=== PATIENT | male | born 1980 | race African-American/Black ===

== ENCOUNTER 2018-07-19 08:54 | Outpatient (RCR) | payer MEDICAID ==
[~2018-07-19] VITALS: Ht 182.9 cm; Wt 88.0 kg
[2018-07-19] VITALS (9 sets, daily range): BP systolic 113–135; BP diastolic 59–82; PULSE 60–87; TEMP 97.8–98.7
[~2018-07-19 08:54] MED LIST: ATARAX 10MG10 MG/TAB PO; CEPHALEXIN500 M1 PO; LAMICTAL 25MG T25 MG PO; LORTAB 5/500 501 TAB PO; NO HOME MEDICATIONS; PHENERGAN 25 TA25 MG PO; REVLIMID10 MG PO; ZITHROMAX Z PA250 MG PO; ZOVIRAX400 MG PO
== END 2018-07-19 16:13 | disposition home or self-care (01) ==
LOC: EUO 08:54
DX: D46.9 Myelodysplastic syndrome, unspecified (principal)
CPT/HCPCS: J7050; P9016

== ENCOUNTER 2018-08-15 08:37 | Outpatient (RCR) | payer MEDICAID ==
[~2018-08-15] VITALS: Ht 182.9 cm; Wt 90.0 kg
[2018-08-15] VITALS (10 sets, daily range): BP systolic 90–132; BP diastolic 52–73; PULSE 51–82; TEMP 97.5–98.3
== END 2018-08-15 18:00 | disposition home or self-care (01) ==
LOC: EUO 08:37
DX: D64.9 Anemia, unspecified (principal)
CPT/HCPCS: J7050; P9040

== ENCOUNTER 2018-10-02 06:47 | Emergency (ER) | payer MEDICAID ==
[~2018-10-02] VITALS: Ht 185.4 cm; Wt 94.1 kg
[2018-10-02] MEDS ORDERED: LAMICTAL 100MG100 MG PO (07:05)
[2018-10-02] MEDS ORDERED: COREG 3.123.125 MG/T PO (07:05)
[2018-10-02] MEDS ORDERED: ASPIRIN 81M81 MG/TA2 PO (07:06)
[2018-10-02] MEDS ORDERED: ZYRTEC 10MG10 MG PO (07:06)
[2018-10-02] MEDS ORDERED: NITROSTAT0.4 MG/TAB PO (07:07)
[2018-10-02 07:43] LABS: BASO % 0.3 % (0.0-2.0); EOS # 0.1 (0.0-0.7); EOS % 2.6 % (0-4.0); GRAN # 1.7 (1.4-6.5); GRAN % 50.6 % (42.2-75.2); LYMPH # 1.3 (1.2-3.4); LYMPH % 37.5 % (20.0-51.0); MEAN CELL VOLUME 114 fl (80.0-100.0); MEAN CORPUSCULAR HGB CONC 33 g/dl (33.0-37.0); MEAN PLATELET VOLUME 11.6 fl (7.4-10.4); MONO # 0.3 (0.1-0.6); MONO % 8.7 % (1.7-9.3); PLATELET COUNT 136 K/mm3 (130-400); RED BLOOD COUNT 2.45 M/mm3 (4.20-5.60); REDCELL DISTRIBUTION WIDTH-CV 18.9 % (11.5-14.5)
[2018-10-02 07:45] LABS: HEMOGLOBIN 9.3 g/dl (13.5-18.0); MEAN CORPUSCULAR HEMOGLOBIN 38 pg (27.0-31.0)
[2018-10-02 07:56] LABS: ALBUMIN 3.7 gm/dL (3.5-5.0); BILIRUBIN,TOTAL 0.3 mg/dL (0.0-1.0); CALCIUM 8.9 mg/dL (8.4-10.2); CREATININE, serum 0.95 mg/dL (0.66-1.25); POTASSIUM 3.9 mmol/L (3.4-5.0); TOTAL PROTEIN 6.6 gm/dL (6.4-8.2)
[2018-10-02] MEDS ORDERED: AMOXICILLIN 8751 TAB PO (08:44)
[2018-10-02] MEDS ORDERED: ZITHROMAX Z PA250 MG PO (08:44)
[2018-10-02 09:11] VITALS: BP 135/87; PULSE 54; TEMP 98.2
== END 2018-10-02 09:09 | disposition home or self-care (01) ==
LOC: COL.ER 06:47
PROVIDERS: Family Medicine
DX: J20.9 Acute bronchitis, unspecified (principal); I25.10 Atherosclerotic heart disease of native coronary artery without angina pectoris; D46.9 Myelodysplastic syndrome, unspecified; Z79.82 Long term (current) use of aspirin
CPT/HCPCS: J0696; J7030

== ENCOUNTER 2018-10-17 09:02 | Day surgery (SDC) | payer MEDICAID ==
[2018-10-17] VITALS (13 sets, daily range): BP systolic 109–146; BP diastolic 67–92; PULSE 40–73; TEMP 97.9
[~2018-10-17] VITALS: Ht 185.4 cm; Wt 95.7 kg
[~2018-10-17 09:02] MED LIST changes: +AMOXICILLIN 8751 TAB PO; +ASPIRIN 81M81 MG/TA2 PO; +COREG 3.123.125 MG/T PO; +LAMICTAL 100MG100 MG PO; +NITROSTAT0.4 MG/TAB PO; +ZYRTEC 10MG10 MG PO
[2018-10-17 09:57] LABS: HEMOGLOBIN 11.6 g/dl (13.5-18.0); MEAN CELL VOLUME 112 fl (80.0-100.0); MEAN CORPUSCULAR HEMOGLOBIN 37 pg (27.0-31.0); MEAN CORPUSCULAR HGB CONC 33 g/dl (33.0-37.0); MEAN PLATELET VOLUME 9.9 fl (7.4-10.4); PLATELET COUNT 156 K/mm3 (130-400); RED BLOOD COUNT 3.15 M/mm3 (4.20-5.60); REDCELL DISTRIBUTION WIDTH-CV 16.8 % (11.5-14.5)
[2018-10-17 09:59] LABS: HEMATOCRIT 35.2 % (42.0-52.0)
[2018-10-17 10:03] LABS: INR 1.1 (0.8-3.0); PROTHROMBIN TIME 12.3 SECONDS (9.7-12.8)
[2018-10-17 10:07] LABS: CALCIUM 9.2 mg/dL (8.4-10.2); CREATININE, serum 1.18 mg/dL (0.66-1.25); POTASSIUM 4.2 mmol/L (3.4-5.0)
[2018-10-17] MEDS ORDERED: COREG 6.256.25 MG/TA PO (11:26)
[2018-10-17] MEDS ORDERED: VASOTEC 5MG5 MG/TAB PO (11:26)
[2018-10-17] MEDS ORDERED: COREG 3.123.125 MG/T PO (11:57)
== END 2018-10-17 17:24 | disposition home or self-care (01) ==
LOC: COL.CAR 09:02
PROVIDERS: Internal Medicine Cardiovascular Disease
DX: I42.8 Other cardiomyopathies (principal); I07.1 Rheumatic tricuspid insufficiency; D46.C Myelodysplastic syndrome with isolated del(5q) chromosomal abnormality; D61.9 Aplastic anemia, unspecified; D63.8 Anemia in other chronic diseases classified elsewhere; J30.2 Other seasonal allergic rhinitis; I50.9 Heart failure, unspecified; Z86.718 Personal history of other venous thrombosis and embolism; Z88.6 Allergy status to analgesic agent; Z91.09 Other allergy status, other than to drugs and biological substances; Z91.018 Allergy to other foods; Z87.891 Personal history of nicotine dependence; Z83.3 Family history of diabetes mellitus; Z82.49 Family history of ischemic heart disease and other diseases of the circulatory system; Z83.79 Family history of other diseases of the digestive system
CPT/HCPCS: J1644; J2250; J3010

== ENCOUNTER → 2019-01-30 | Outpatient (CLI) | payer MEDICAID ==
--- NOTE | 2019-01-27 10:56 | NUR ---
CALLED AND LEFT RACHEL ON HIS MACHINE. RIMNDER OF DATE AND TIME. CALL BACK NUMBER. NEED TO VISIT WITH PT ABOUT ALLERGIES, MEDS AND PMH
[~2019-01-30] VITALS: Ht 185.4 cm; Wt 98.2 kg
[~2019-01-30] MED LIST changes: +COREG 6.256.25 MG/TA PO; +NORCO 325 MG-51 TAB PO; +VASOTEC 5MG5 MG/TAB PO
[2019-01-30 11:53] VITALS: BP 130/81; PULSE 55
[2019-01-30 13:20] VITALS: BP 130/88; PULSE 51
--- NOTE | 2019-01-30 13:47 | NUR ---
PT AMBULATED TO LOBBY AND OUT TO POV.
== END ==
LOC: COL.RAD 11:30
DX: M51.16 Intervertebral disc disorders with radiculopathy, lumbar region (principal)
CPT/HCPCS: J3301

== ENCOUNTER 2019-03-03 03:25 | Emergency (ER) | payer MEDICAID ==
[~2019-03-03] VITALS: Ht 185.4 cm; Wt 97.7 kg
[2019-03-03 03:30] VITALS: TEMP 99.4
[2019-03-03 04:18] LABS: BASO % 0.6 % (0.0-2.0); EOS # 0.1 (0.0-0.7); EOS % 1.3 % (0-4.0); GRAN # 1.6 (1.4-6.5); GRAN % 33.7 % (42.2-75.2); HEMATOCRIT 38.5 % (42.0-52.0); LYMPH # 2.5 (1.2-3.4); LYMPH % 51.6 % (20.0-51.0); MEAN CELL VOLUME 101 fl (80.0-100.0); MEAN CORPUSCULAR HEMOGLOBIN 34 pg (27.0-31.0); MEAN CORPUSCULAR HGB CONC 34 g/dl (33.0-37.0); MEAN PLATELET VOLUME 9.1 fl (7.4-10.4); MONO # 0.6 (0.1-0.6); MONO % 12.6 % (1.7-9.3); PLATELET COUNT 139 K/mm3 (130-400); RED BLOOD COUNT 3.81 M/mm3 (4.20-5.60); REDCELL DISTRIBUTION WIDTH-CV 16.3 % (11.5-14.5)
[2019-03-03 04:28] LABS: ALBUMIN 3.9 gm/dL (3.5-5.0); BILIRUBIN,TOTAL 0.3 mg/dL (0.0-1.0); CALCIUM 9.1 mg/dL (8.4-10.2); CREATININE, serum 0.99 (0.66-1.25); POTASSIUM 3.9 mmol/L (3.4-5.0); TOTAL PROTEIN 7.3 gm/dL (6.4-8.2)
[2019-03-03] MEDS ORDERED: ZOVIRAX400 MG PO (04:34)
[2019-03-03] MEDS ORDERED: PREDNISONE10 MG PO (04:35)
[2019-03-03] MEDS ORDERED: PROAIR HFA0.09 MG/AC IH (04:35)
[2019-03-03] MEDS ORDERED: ATARAX 10MG10 MG/TAB PO (04:36)
[2019-03-03] MEDS ORDERED: PRINIVIL2.5 MG PO (04:36)
[2019-03-03] MEDS ORDERED: PRIL40 PO (04:37)
[2019-03-03] MEDS ORDERED: COREG 6.256.25 MG/TA PO (04:37)
[2019-03-03] MEDS ORDERED: ZITHROMAX500 M2 PO (05:14)
[2019-03-03] MEDS ORDERED: TESSALON PERLE200 MG PO (05:14)
[2019-03-03] MEDS ORDERED: SUDAFED30 MG PO (05:14)
[2019-03-03] MEDS ORDERED: BENADRYL25 M2 PO (05:14)
[2019-03-03 05:29] VITALS: BP 139/95; PULSE 68
== END 2019-03-03 05:38 | disposition home or self-care (01) ==
LOC: COL.ER 03:25
PROVIDERS: Emergency Medicine
DX: J40 Bronchitis, not specified as acute or chronic (principal); B34.9 Viral infection, unspecified; I10 Essential (primary) hypertension; Z79.82 Long term (current) use of aspirin
CPT/HCPCS: J1200; J3010; J7030

== ENCOUNTER 2019-10-08 16:54 | Emergency (ER) | payer MEDICAID ==
[~2019-10-08] VITALS: Ht 185.4 cm; Wt 100.0 kg
[~2019-10-08 16:54] MED LIST changes: +BENADRYL25 M2 PO; +PREDNISONE10 MG PO; +PRIL40 PO; +PRINIVIL2.5 MG PO; +PROAIR HFA0.09 MG/AC IH; +SUDAFED30 MG PO; +TESSALON PERLE200 MG PO; +ZITHROMAX500 M2 PO
[2019-10-08 16:59] VITALS: TEMP 98.4
[2019-10-08 18:16] LABS: MEAN CELL VOLUME 106 fl (80.0-100.0); MEAN CORPUSCULAR HGB CONC 36 g/dl (33.0-37.0); RED BLOOD COUNT 2.58 M/mm3 (4.20-5.60); REDCELL DISTRIBUTION WIDTH-CV 16.9 % (11.5-14.5)
[2019-10-08 18:21] LABS: ALBUMIN 4.5 gm/dL (3.5-5.0); BILIRUBIN,TOTAL 0.6 mg/dL (0.0-1.0); CREATININE, serum 1.03 (0.66-1.25); POTASSIUM 3.7 mmol/L (3.4-5.0)
[2019-10-08 18:35] LABS: HEMATOCRIT 27.4 % (42.0-52.0); HEMOGLOBIN 9.8 g/dl (13.5-18.0); MEAN CORPUSCULAR HEMOGLOBIN 38 pg (27.0-31.0)
[2019-10-08 18:37] LABS: PLATELET COUNT 26 K/mm3 (130-400)
[2019-10-08 18:49] LABS: BAND 16 % (0-10); LYMPHOCYTE 47 % (20.0-51.0); MYELOCYTE 3 % (0-0); NEUTROPHILS 32 % (42.0-75.2)
[2019-10-08 18:50] LABS: PLATELET ESTIMATE DECREASED (NORMAL)
[2019-10-08 18:51] LABS: ANISOCYTOSIS 2+
[2019-10-08 19:31] LABS: COLLECTION METHOD CLEAN CATCH
[2019-10-08 19:45] LABS: MUCOUS Present /lpf; PH 6 (5-8); URINE APPEARANCE Hazy; URINE BACTERIA None Seen /hpf; URINE BILIRUBIN Negative (NEGATIVE); URINE BLOOD 1+ (NEGATIVE); URINE COLOR Yellow; URINE GLUCOSE Negative (NEGATIVE); URINE KETONE Negative (NEGATIVE); URINE LEUKOCYTE ESTERASE Negative (NEGATIVE); URINE NITRATE Negative (NEGATIVE); URINE PROTEIN(semi-quant) Negative (NEGATIVE); URINE RBC 0-2 /hpf; URINE UROBILINOGEN Negative (NEGATIVE)
[2019-10-08 20:19] VITALS: BP 130/83; PULSE 66
== END 2019-10-08 20:13 | disposition short-term general hospital (02) ==
LOC: COL.ER 16:54
PROVIDERS: Family Medicine
DX: C92.00 Acute myeloblastic leukemia, not having achieved remission (principal); I10 Essential (primary) hypertension; Z79.82 Long term (current) use of aspirin
CPT/HCPCS: J7030

== ENCOUNTER 2019-12-09 01:19 | Emergency (ER) | payer MEDICAID ==
[~2019-12-09] VITALS: Ht 185.4 cm; Wt 90.5 kg
[2019-12-09 01:34] VITALS: BP 142/84; TEMP 98.3
[2019-12-09] MEDS ORDERED: PEN-VEE K500 MG PO (02:15)
[2019-12-09 02:56] VITALS: PULSE 76
== END 2019-12-09 02:56 | disposition home or self-care (01) ==
LOC: COL.ER 01:19
DX: K02.9 Dental caries, unspecified (principal); C95.90 Leukemia, unspecified not having achieved remission; D64.9 Anemia, unspecified; D69.6 Thrombocytopenia, unspecified
CPT/HCPCS: J1170

== ENCOUNTER 2019-12-18 16:25 | Inpatient (IN) | payer MEDICAID ==
[~2019-12-18] VITALS: Ht 185.4 cm; Wt 96.2 kg
[2019-12-18] VITALS (7 sets, daily range): BP systolic 116–132; BP diastolic 63–77; PULSE 77–86; TEMP 98.9–99
[~2019-12-18 16:25] MED LIST changes: +PEN-VEE K500 MG PO
[2019-12-18 17:35] LABS: STREP SCREEN NEGATIVE
--- NOTE | 2019-12-18 19:05 | NUR ---
Vancomycin Initial Dosing Pharmacy Note Ordering provider: Mal Mejia MD Indication/duration: neutropenic fever LABS: est Crcl 85 mL/min Recommendation: 1.25 g Iv every 8 hours, after 1.5 g load, trough on 12/20 @1030 Loading dose: 1.5 grams Maintenance dose: 1.25 grams every 8 hours Trough goal: 15-20 ug/mL
[2019-12-18 20:13] LABS: INR 1.2 (0.8-3.0); PROTHROMBIN TIME 14.5 SECONDS (9.7-12.8)
[2019-12-18] MEDS ORDERED: ZOVIRAX800 MG PO (20:22)
[2019-12-18] MEDS ORDERED: CEFTIN 250250 MG/TAB PO (20:23)
[2019-12-18] MEDS ORDERED: DIFLUCAN200 MG PO (20:23)
[2019-12-18] MEDS ORDERED: ZOFRAN8 MG PO (20:24)
--- NOTE | 2019-12-18 22:23 | NUR ---
Patient arrived to medical floor around 1999. Patient assessed. Reports pain to mouth. Given PRN APAP, as patient recieved PRN [place] in ER. Requested pain medication from Donna as well. Peripheral IV to left forearm. Blood started per orders. No using PICC at this time to right upper arm. Dressing CDI. Denies SOB and dyspnea. LS CTA. Respirations even and unlabored. HRR. Telemetry in place. Capillary refill less than 3 seconds. Non-tenting skin turgor. BSAx4. Abdomen soft and non-tender. No edema. Voices no questions, needs, or concerns at this time. Call light is within reach.
[2019-12-19] VITALS (15 sets, daily range): BP systolic 119–152; BP diastolic 65–88; PULSE 50–83; TEMP 97.1–99.3
--- NOTE | 2019-12-19 00:21 | NUR ---
Tolerated first unit of blood well. Second unit of blood infusing at this time.
[2019-12-19 04:23] LABS: GRAN % 2.2 % (42.2-75.2); LYMPH # 0.9 (1.2-3.4); LYMPH % 96.7 % (20.0-51.0); MEAN CELL VOLUME 87 fl (80.0-100.0); MEAN CORPUSCULAR HGB CONC 34 g/dl (33.0-37.0); MEAN PLATELET VOLUME 10.9 fl (7.4-10.4); MONO % 1.1 % (1.7-9.3); RED BLOOD COUNT 2.37 M/mm3 (4.20-5.60); REDCELL DISTRIBUTION WIDTH-CV 13.1 % (11.5-14.5)
[2019-12-19 04:39] LABS: HEMATOCRIT 20.6 % (42.0-52.0); MEAN CORPUSCULAR HEMOGLOBIN 30 pg (27.0-31.0); PLATELET COUNT 28 K/mm3 (130-400)
[2019-12-19 04:47] LABS: ALBUMIN 3.5 gm/dL (3.5-5.0); BILIRUBIN,TOTAL 0.6 mg/dL (0.0-1.0); CALCIUM 8.8 mg/dL (8.4-10.2); CREATININE, serum 0.87 (0.66-1.25); POTASSIUM 4.1 mmol/L (3.4-5.0); TOTAL PROTEIN 6.8 gm/dL (6.4-8.2)
--- NOTE | 2019-12-19 04:56 | NUR ---
Completed 2nd unit of blood and recheck HMG was 7.0. Spoke with XENIA Thompson and wanted to know if we had any more irradiated blood here for patient. Called blood bank and stated that we had no more on hand and would have to order it. Updated Donna. New order for 2 units irradiated packed red blood cells. Updated blood bank.
--- NOTE | 2019-12-19 06:13 | NUR ---
Donna called and stated she wanted to hold next two units of blood at this time, until after Dr. Barrios consults on patient. Patient resting in bed talking on phone. Voices no questions, needs, or concerns at this time. Call light is within [facility].
--- NOTE | 2019-12-19 09:30 | NUR ---
PER AIV PADDY HARDING PICC LINE POWER FLUSHED TO ASSIST WITH ATTEMPTING PROPER TIP PLACEMENT. LUMENS X 2 POWER FLUSHED WITH 5 10ML NS FLUSHES. FLUSHED WITHOUT RESISTANCE WITH GOOD BLOOD RETURN. SINGLE VIEW CXR ORDERED TO VERIFY PLACEMENT. NO C/O OF PAIN, DISCOMFORT, OR PRESSURE DURING PROCEDURE. NO VISUALIZED PULSATION IN RIGHT CAROTID AREA DURING PROCEDURE.
--- NOTE | 2019-12-19 10:00 | NUR ---
review last evenings chest x-ray with tip location and lower SVC. Reviewed patient's CT scan with tip location noted in the right internal jugular vein. Primary care nurse at her flushed PICC and repeated chest x-ray. This a.m. chest x-ray with tip location and lower SVC. Primary care nurse informed.
--- NOTE | 2019-12-19 16:43 | NUR ---
Contract Writer met with patient to discuss discharge planning. Patient lives with his fianceQuinton (ph#[phone]) in [place]. Patient sees Dr. Lou Francois for primary care and obtains medications from [facility] [address]. Patient reports his insurance does not cover some of his medications. Patient reports he has a rehabilitation case coordinator with his [employer], [facility] named Winnie (ph#[phone]). Patient reports he is working on getting a walker and [facility] is assisting him with this. SW contacted Winnie who advised she is working on setting up in home supports for patient but patient could also receive Home Health if needed without disrupting the supports she is working on establishing. JUAN spoke with LORETTA Mistry about ordering PT evaluation for patient. SW to continue to follow.
[2019-12-19 17:14] LABS: COLLECTION METHOD CLEAN CATCH
[2019-12-19 17:23] LABS: MUCOUS Present /lpf; PH 6 (5-8); SQUAMOUS EPITHELIAL 0-2 /hpf; URINE APPEARANCE Clear; URINE BACTERIA None Seen /hpf; URINE BILIRUBIN Negative (NEGATIVE); URINE BLOOD Negative (NEGATIVE); URINE COLOR Yellow; URINE GLUCOSE Negative (NEGATIVE); URINE KETONE Negative (NEGATIVE); URINE LEUKOCYTE ESTERASE Negative (NEGATIVE); URINE NITRATE Negative (NEGATIVE); URINE PROTEIN(semi-quant) Negative (NEGATIVE); URINE RBC 0-2 /hpf; URINE UROBILINOGEN Negative (NEGATIVE)
--- NOTE | 2019-12-19 19:35 | NUR ---
Patient assessed at this time. Alert and oriented x 4, and able to make needs known. Reports level 8 pain to mouth. Given PRN [place]. Double lumen PICC to RUE. LS CTA. Respirations even and unlabored. Denies SOB and dyspnea. HRR. Telemetry in place: sinus. Capillary refill less tahn 3 seconds. Non-tenting skin turgor. BSAx4. Abdomen soft and non-tender. Using urinal-urine clear and yellow. No edema. Voices no furhter questions, needs, or concerns at this time. Resting in bed with call light within reach.
--- NOTE | 2019-12-19 23:30 | NUR ---
Patient given PRN [place] as requested for pain per orders. Voices no furhter questions, needs, or concerns at this time. Call light within reach.
--- NOTE | 2019-12-20 00:15 | NUR ---
Checked on patient to see if he he needed a second PRN [place] per orders to repeat in 45 minutes if not effective. Patient asleep at this time. Called out patient's name a few times with no response. Respirations even and unlabored. Call light is within reach.
--- NOTE | 2019-12-20 02:30 | NUR ---
Patient woke up complaining of level 8 pain to mouth. Given PRN [place] as requested for pain.
--- NOTE | 2019-12-20 03:54 | NUR ---
Patient resting in bed with eyes closed.
[2019-12-20 04:15] VITALS: BP 126/86; PULSE 74; TEMP 97.6
--- NOTE | 2019-12-20 06:16 | NUR ---
Patient given PRN [place] for pain at this time. Voices no further questions, needs, or concerns at this time. Resting in bed with call light within reach.
[2019-12-20 06:24] LABS: MEAN CELL VOLUME 87 fl (80.0-100.0); MEAN CORPUSCULAR HGB CONC 34 g/dl (33.0-37.0); MEAN PLATELET VOLUME 9.7 fl (7.4-10.4); REDCELL DISTRIBUTION WIDTH-CV 13.1 % (11.5-14.5)
[2019-12-20 06:28] LABS: ALBUMIN 3.2 gm/dL (3.5-5.0); BILIRUBIN,TOTAL 0.6 mg/dL (0.0-1.0); CALCIUM 8.5 mg/dL (8.4-10.2); CREATININE, serum 0.72 (0.66-1.25); POTASSIUM 4.1 mmol/L (3.4-5.0); TOTAL PROTEIN 6.3 gm/dL (6.4-8.2)
[2019-12-20 07:11] LABS: HEMATOCRIT 21.8 % (42.0-52.0); HEMOGLOBIN 7.4 g/dl (13.5-18.0); MEAN CORPUSCULAR HEMOGLOBIN 30 pg (27.0-31.0); PLATELET COUNT 19 K/mm3 (130-400)
[2019-12-20 08:19] VITALS: BP 121/78; PULSE 59; TEMP 97.7
--- NOTE | 2019-12-20 09:32 | NUR ---
Pt WBC called from lab, Dr. Mejia aware. No concerns at this time. Pt sleeping in bed.
[2019-12-20 09:34] LABS: LYMPHOCYTE 84 % (20.0-51.0); NEUTROPHILS 4 % (42.0-75.2)
--- NOTE | 2019-12-20 10:04 | NUR ---
Pt assessment completed and charted. Pt sitting in recliner at bedside. A&O, independent in room. Pt on room air. Denies dizziness, sob, n/v/d, body aches, chills, pain. Pt received PRN [place] this morning prior to shift change, currently rating pain a 0/10 and is "ready to go home for sons birthday". Pt has ALON PICC, w/ NS running w/o complications. No other concerns expressed at this time. Call light within reach.
--- NOTE | 2019-12-20 13:06 | NUR ---
Pt discharge instructions discussed and reviewed with patient who verbalized understanding. All questions answered. Pt discharged w/ PICC in place, has weekly dressing changes w/ SRINIVASAN Kaminski on Mondays. No other concerns. Pt escorted out via WC by PRIYANK Ross.
[2019-12-23] MEDS ORDERED: LAMICTAL150 MG PO (13:58)
== END 2019-12-20 13:07 | disposition home or self-care (01) | DRG 809 ==
LOC: COL.ER 16:25 → MEDICAL 18:33
PROVIDERS: Emergency Medicine; Nurse Practitioner Family; ADMIT Hospitalist
DX: D61.818 Other pancytopenia (principal); C92.00 Acute myeloblastic leukemia, not having achieved remission; I42.8 Other cardiomyopathies; K59.00 Constipation, unspecified; R50.81 Fever presenting with conditions classified elsewhere; I25.10 Atherosclerotic heart disease of native coronary artery without angina pectoris; Z87.891 Personal history of nicotine dependence; J02.9 Acute pharyngitis, unspecified
CPT/HCPCS: 99223-AI; 99232-AI; 99239; A4216; J0692; J3370; J7030; J7050; P9040; Q9967

== ENCOUNTER → 2020-01-23 | Outpatient (CLI) | payer MEDICAID ==
[~2020-01-23] MED LIST changes: +CEFTIN 250250 MG/TAB PO; +DIFLUCAN200 MG PO; +LAMICTAL150 MG PO; +ZOFRAN8 MG PO; +ZOVIRAX800 MG PO
== END ==
LOC: COL.RAD 08:00
DX: K76.9 Liver disease, unspecified (principal)
CPT/HCPCS: Q9967

== ENCOUNTER 2020-03-02 13:00 | Outpatient (RCR) | payer MEDICAID ==
[2019-12-05 13:35] VITALS: BP 132/76; PULSE 95; TEMP 97.7
[2019-12-05 14:05] VITALS: BP 128/94; PULSE 91; TEMP 97.8
[2019-12-05 14:35] VITALS: BP 123/80; PULSE 80; TEMP 97.8
[2019-12-05 15:27] VITALS: BP 127/82; PULSE 80; TEMP 98.7
[2019-12-08 10:30] VITALS: BP 132/77; PULSE 88; TEMP 97.7
--- NOTE | 2019-12-08 10:45 | NUR ---
Patient here for cares. PICC intact right upper arm with patient reported "it feels like its pinched." With sterile technique right upper arm PICC dressing change done with insertion site cleansed with chloraprep x1, skin prep, chlorhexidine impregnated disk applied, stat lock, and tegaderm applied. no signs or symptoms of IV complications noted. no concerns voiced. wrapped with christie to protect catheter. According to patient, PICC was placed a [facility] and he is being worked up for a bone marrow transplant.
[2019-12-08 11:33] LABS: ALBUMIN 3.9 gm/dL (3.5-5.0); BILIRUBIN,TOTAL 0.6 mg/dL (0.0-1.0); CALCIUM 9.4 mg/dL (8.4-10.2); CREATININE, serum 0.88 (0.66-1.25); POTASSIUM 4.4 mmol/L (3.4-5.0); TOTAL PROTEIN 7.2 gm/dL (6.4-8.2)
[2019-12-08 12:20] LABS: MEAN CELL VOLUME 91 fl (80.0-100.0); MEAN CORPUSCULAR HGB CONC 33 g/dl (33.0-37.0); RED BLOOD COUNT 2.29 M/mm3 (4.20-5.60); REDCELL DISTRIBUTION WIDTH-CV 14.4 % (11.5-14.5)
[2019-12-08 12:36] LABS: HEMATOCRIT 20.8 % (42.0-52.0); HEMOGLOBIN 6.9 g/dl (13.5-18.0); MEAN CORPUSCULAR HEMOGLOBIN 30 pg (27.0-31.0); PLATELET COUNT 4 K/mm3 (130-400)
--- NOTE | 2019-12-08 12:52 | NUR ---
Pt came back for redraw per lab request.Reported results to Dr Barnes's nurse Maricel.
[2019-12-08 14:43] LABS: LYMPHOCYTE 45 % (20.0-51.0); NEUTROPHILS 55 % (42.0-75.2)
[2019-12-08 14:44] LABS: PLATELET ESTIMATE DECREASED (NORMAL)
[2019-12-08 14:48] LABS: TEAR DROP CELLS 1+
[2019-12-08 14:49] LABS: STOMATOCYTE 1+
[2019-12-09] VITALS (9 sets, daily range): BP systolic 117–143; BP diastolic 71–93; PULSE 52–87; TEMP 97.2–98.4
--- NOTE | 2019-12-09 14:20 | NUR ---
patient is in the express unit. PICC intact right upper arm. Patient does have a cane at the hub. Flushed with 10 mL normal saline with good blood return noted.
[2019-12-10] VITALS (10 sets, daily range): BP systolic 122–140; BP diastolic 68–89; PULSE 52–90; TEMP 98–98.3
[2019-12-10 12:22] LABS: MEAN CELL VOLUME 90 fl (80.0-100.0); MEAN CORPUSCULAR HGB CONC 34 g/dl (33.0-37.0); MEAN PLATELET VOLUME 12.7 fl (7.4-10.4); RED BLOOD COUNT 2.12 M/mm3 (4.20-5.60); REDCELL DISTRIBUTION WIDTH-CV 14.3 % (11.5-14.5)
[2019-12-10 12:30] LABS: ALBUMIN 3.8 gm/dL (3.5-5.0); BILIRUBIN,TOTAL 0.4 mg/dL (0.0-1.0); CALCIUM 9.4 mg/dL (8.4-10.2); CREATININE, serum 0.91 (0.66-1.25); POTASSIUM 4.1 mmol/L (3.4-5.0); TOTAL PROTEIN 6.7 gm/dL (6.4-8.2)
[2019-12-10 12:38] LABS: LYMPHOCYTE 70 % (20.0-51.0); NEUTROPHILS 30 % (42.0-75.2); PLATELET ESTIMATE DECREASED (NORMAL)
[2019-12-10 12:39] LABS: OVALOCYTES 1+
[2019-12-10 12:41] LABS: HEMOGLOBIN 6.4 g/dl (13.5-18.0); MEAN CORPUSCULAR HEMOGLOBIN 30 pg (27.0-31.0); PLATELET COUNT 24 K/mm3 (130-400)
--- NOTE | 2019-12-15 11:30 | NUR ---
Here for cares. with sterile technique right upper arm PICC dressing change done with insertion site cleansed with chloraprep x 1, chlorhexidine impregnate disk applied, skin prep, stat lock, and tegaderm applied. no signs or symptoms of IV complications noted. no concerns voiced. re-wrapped with christie to protect catheter. to return as scheduled for cares. voiced understanding of instructions.
[2019-12-15 11:49] LABS: MEAN CELL VOLUME 86 fl (80.0-100.0); MEAN CORPUSCULAR HGB CONC 35 g/dl (33.0-37.0); REDCELL DISTRIBUTION WIDTH-CV 13.2 % (11.5-14.5)
[2019-12-15 11:58] LABS: BILIRUBIN,TOTAL 0.6 mg/dL (0.0-1.0); CALCIUM 9.1 mg/dL (8.4-10.2); CREATININE, serum 0.92 (0.66-1.25); POTASSIUM 4.5 mmol/L (3.4-5.0); TOTAL PROTEIN 7.1 gm/dL (6.4-8.2)
[2019-12-15 12:19] LABS: LYMPHOCYTE 95 % (20.0-51.0); NEUTROPHILS 3 % (42.0-75.2); PLATELET ESTIMATE DECREASED (NORMAL)
[2019-12-15 12:20] LABS: BAND 1 % (0-10)
[2019-12-15 12:23] LABS: HEMATOCRIT 21.6 % (42.0-52.0); HEMOGLOBIN 7.5 g/dl (13.5-18.0); MEAN CORPUSCULAR HEMOGLOBIN 30 pg (27.0-31.0); PLATELET COUNT 7 K/mm3 (130-400)
[2019-12-15 15:43] VITALS: BP 119/74; PULSE 96; TEMP 97.8
[2019-12-16] VITALS (7 sets, daily range): BP systolic 130–148; BP diastolic 72–84; PULSE 73–87; TEMP 98.1–98.6
[2019-12-18 13:20] VITALS: BP 123/71; PULSE 92; TEMP 99.5
[2019-12-18 13:40] LABS: MEAN CELL VOLUME 87 fl (80.0-100.0); MEAN CORPUSCULAR HGB CONC 34 g/dl (33.0-37.0); MEAN PLATELET VOLUME 9.8 fl (7.4-10.4); RED BLOOD COUNT 2.02 M/mm3 (4.20-5.60)
[2019-12-18 13:51] LABS: ALBUMIN 4.4 gm/dL (3.5-5.0); BILIRUBIN,TOTAL 0.8 mg/dL (0.0-1.0); CALCIUM 9.7 mg/dL (8.4-10.2); CREATININE, serum 1.12 (0.66-1.25); POTASSIUM 4.2 mmol/L (3.4-5.0); TOTAL PROTEIN 8.2 gm/dL (6.4-8.2)
[2019-12-18 14:05] LABS: MEAN CORPUSCULAR HEMOGLOBIN 30 pg (27.0-31.0)
[2019-12-18 14:06] LABS: HEMATOCRIT 17.6 % (42.0-52.0); PLATELET COUNT 45 K/mm3 (130-400)
[2019-12-18 14:18] LABS: LYMPHOCYTE 98 % (20.0-51.0); PLATELET ESTIMATE DECREASED (NORMAL)
[2019-12-19 08:49] LABS: PATHOLOGY DIFF REVIEW OK
--- NOTE | 2019-12-22 08:45 | NUR ---
Here for cares. with sterile technique right upper arm PICC dressing change done with insertion sited with chloraprep x 1, chlorhexidine impregnated disk applied, skin prep, stat lock, and tegaderm applied. no signs or symptoms of IV complications noted. no signs or symptoms of IV complications noted. no concerns voiced. re-wrapped with christie to protect catheter. to return to as scheduled. voiced understanding of instructions.
[2019-12-22 08:54] VITALS: BP 125/92; PULSE 82; TEMP 97.8
[2019-12-22 09:03] LABS: ALBUMIN 3.9 gm/dL (3.5-5.0); BILIRUBIN,TOTAL 0.5 mg/dL (0.0-1.0); CALCIUM 9.6 mg/dL (8.4-10.2); CREATININE, serum 0.85 (0.66-1.25); POTASSIUM 3.8 mmol/L (3.4-5.0); TOTAL PROTEIN 7.7 gm/dL (6.4-8.2)
[2019-12-22 09:04] LABS: MEAN CELL VOLUME 86 fl (80.0-100.0); MEAN CORPUSCULAR HGB CONC 34 g/dl (33.0-37.0); RED BLOOD COUNT 3.05 M/mm3 (4.20-5.60); REDCELL DISTRIBUTION WIDTH-CV 12.7 % (11.5-14.5)
[2019-12-22 09:10] LABS: HEMATOCRIT 26.3 % (42.0-52.0); MEAN CORPUSCULAR HEMOGLOBIN 30 pg (27.0-31.0); PLATELET COUNT 11 K/mm3 (130-400)
[2019-12-22 11:43] LABS: NEUTROPHILS 2 % (42.0-75.2); PLATELET ESTIMATE DECREASED (NORMAL)
[2019-12-22 11:45] LABS: ANISOCYTOSIS 1+; LYMPHOCYTE 96 % (20.0-51.0)
[2019-12-23] VITALS (7 sets, daily range): BP systolic 117–136; BP diastolic 81–91; PULSE 50–74; TEMP 97.5–98.3
[2019-12-25 08:55] LABS: MEAN CELL VOLUME 87 fl (80.0-100.0); MEAN CORPUSCULAR HGB CONC 34 g/dl (33.0-37.0); MEAN PLATELET VOLUME 8.2 fl (7.4-10.4); RED BLOOD COUNT 2.54 M/mm3 (4.20-5.60); REDCELL DISTRIBUTION WIDTH-CV 12.5 % (11.5-14.5)
[2019-12-25 09:01] VITALS: BP 130/88; PULSE 58; TEMP 97.9
[2019-12-25 09:02] LABS: BILIRUBIN,TOTAL 0.3 mg/dL (0.0-1.0); CALCIUM 9.8 mg/dL (8.4-10.2); CREATININE, serum 0.86 (0.66-1.25); POTASSIUM 4.3 mmol/L (3.4-5.0); TOTAL PROTEIN 7.5 gm/dL (6.4-8.2)
[2019-12-25 09:08] LABS: HEMATOCRIT 22.2 % (42.0-52.0); HEMOGLOBIN 7.5 g/dl (13.5-18.0); MEAN CORPUSCULAR HEMOGLOBIN 30 pg (27.0-31.0)
[2019-12-25 09:09] LABS: PLATELET COUNT 23 K/mm3 (130-400)
[2019-12-25 09:46] LABS: BAND 1 % (0-10); LYMPHOCYTE 80 % (20.0-51.0); MICROCYTOSIS 1+; NEUTROPHILS 16 % (42.0-75.2); PLATELET ESTIMATE DECREASED (NORMAL)
--- NOTE | 2019-12-29 10:15 | NUR ---
PICC intact right upper arm. With sterile technique right upper arm PICC dressing change done with insertion site cleansed with ChloraPrep 1, chlorhexidine impregnated disc applied, skin prep, StatLock, and Tegaderm applied. No signs or symptoms of IV complications noted. No concerns voiced. Arm wrapped with Goldy to protect catheter. Patient to continue with cares in the express unit. Patient voiced understanding of instructions.
[2019-12-29 10:26] LABS: MEAN CELL VOLUME 87 fl (80.0-100.0); MEAN CORPUSCULAR HGB CONC 34 g/dl (33.0-37.0); MEAN PLATELET VOLUME 8.9 fl (7.4-10.4); RED BLOOD COUNT 2.84 M/mm3 (4.20-5.60); REDCELL DISTRIBUTION WIDTH-CV 12.3 % (11.5-14.5)
[2019-12-29 10:33] LABS: ALBUMIN 4.1 gm/dL (3.5-5.0); BILIRUBIN,TOTAL 0.3 mg/dL (0.0-1.0); CALCIUM 9.6 mg/dL (8.4-10.2); CREATININE, serum 0.85 (0.66-1.25); HEMATOCRIT 24.6 % (42.0-52.0); HEMOGLOBIN 8.4 g/dl (13.5-18.0); MEAN CORPUSCULAR HEMOGLOBIN 30 pg (27.0-31.0); POTASSIUM 4.3 mmol/L (3.4-5.0); TOTAL PROTEIN 7.4 gm/dL (6.4-8.2)
[2019-12-29 10:35] LABS: PLATELET COUNT 10 K/mm3 (130-400)
[2019-12-29 10:42] VITALS: BP 126/73; PULSE 68; TEMP 98
[2019-12-29 11:32] LABS: BAND 2 % (0-10); LYMPHOCYTE 74 % (20.0-51.0); NEUTROPHILS 15 % (42.0-75.2); PLATELET ESTIMATE DECREASED (NORMAL)
[2019-12-30 13:21] VITALS: BP 120/78; PULSE 68; TEMP 97.3
[2019-12-30 13:36] VITALS: BP 120/77; PULSE 77; TEMP 97.3
[2019-12-30 13:51] VITALS: BP 112/70; PULSE 67; TEMP 97.3
[2019-12-30 14:15] VITALS: BP 116/73; PULSE 68; TEMP 97.3
[2019-12-30 14:40] VITALS: BP 116/71; PULSE 58; TEMP 97.9
[2020-01-01 10:03] LABS: MEAN CELL VOLUME 87 fl (80.0-100.0); MEAN CORPUSCULAR HGB CONC 34 g/dl (33.0-37.0); MEAN PLATELET VOLUME 9.1 fl (7.4-10.4); RED BLOOD COUNT 2.76 M/mm3 (4.20-5.60); REDCELL DISTRIBUTION WIDTH-CV 12.4 % (11.5-14.5)
[2020-01-01 10:07] VITALS: BP 122/77; PULSE 66; TEMP 97.8
[2020-01-01 10:09] LABS: ALBUMIN 4.3 gm/dL (3.5-5.0); BILIRUBIN,TOTAL 0.4 mg/dL (0.0-1.0); CALCIUM 9.4 mg/dL (8.4-10.2); CREATININE, serum 0.88 (0.66-1.25); POTASSIUM 4.2 mmol/L (3.4-5.0); TOTAL PROTEIN 7.7 gm/dL (6.4-8.2)
[2020-01-01 11:20] LABS: BAND 2 % (0-10); NEUTROPHILS 13 % (42.0-75.2)
[2020-01-01 11:22] LABS: LYMPHOCYTE 69 % (20.0-51.0)
[2020-01-01 11:23] LABS: PLATELET ESTIMATE DECREASED (NORMAL)
[2020-01-01 11:45] LABS: HEMATOCRIT 23.9 % (42.0-52.0); HEMOGLOBIN 8.1 g/dl (13.5-18.0); MEAN CORPUSCULAR HEMOGLOBIN 29 pg (27.0-31.0)
[2020-01-01 11:46] LABS: PLATELET COUNT 24 K/mm3 (130-400)
[2020-01-02 08:16] LABS: PATHOLOGY DIFF REVIEW OK
[2020-01-05 10:39] LABS: MEAN CELL VOLUME 85 fl (80.0-100.0); MEAN CORPUSCULAR HGB CONC 35 g/dl (33.0-37.0); RED BLOOD COUNT 2.68 M/mm3 (4.20-5.60); REDCELL DISTRIBUTION WIDTH-CV 12.6 % (11.5-14.5)
[2020-01-05 10:45] LABS: ALBUMIN 4.5 gm/dL (3.5-5.0); BILIRUBIN,TOTAL 0.6 mg/dL (0.0-1.0); CALCIUM 9.5 mg/dL (8.4-10.2); CREATININE, serum 0.89 (0.66-1.25); TOTAL PROTEIN 7.9 gm/dL (6.4-8.2)
[2020-01-05 10:50] LABS: HEMATOCRIT 22.8 % (42.0-52.0); HEMOGLOBIN 7.9 g/dl (13.5-18.0); MEAN CORPUSCULAR HEMOGLOBIN 29 pg (27.0-31.0); PLATELET COUNT 15 K/mm3 (130-400)
[2020-01-05 10:56] VITALS: BP 117/84; PULSE 89; TEMP 97.9
[2020-01-05 10:57] LABS: LYMPHOCYTE 57 % (20.0-51.0); PLATELET ESTIMATE DECREASED (NORMAL)
[2020-01-05 10:58] LABS: NEUTROPHILS 20 % (42.0-75.2)
[2020-01-08 07:52] LABS: MEAN CELL VOLUME 86 fl (80.0-100.0); MEAN CORPUSCULAR HGB CONC 34 g/dl (33.0-37.0); MEAN PLATELET VOLUME 12.2 fl (7.4-10.4); RED BLOOD COUNT 2.49 M/mm3 (4.20-5.60); REDCELL DISTRIBUTION WIDTH-CV 12.5 % (11.5-14.5)
[2020-01-08 07:53] LABS: HEMATOCRIT 21.3 % (42.0-52.0); HEMOGLOBIN 7.3 g/dl (13.5-18.0); MEAN CORPUSCULAR HEMOGLOBIN 29 pg (27.0-31.0)
[2020-01-08 07:54] LABS: PLATELET COUNT 20 K/mm3 (130-400)
[2020-01-08 08:05] LABS: ALBUMIN 4.3 gm/dL (3.5-5.0); BILIRUBIN,TOTAL 0.4 mg/dL (0.0-1.0); CALCIUM 9.4 mg/dL (8.4-10.2); CREATININE, serum 0.86 (0.66-1.25); POTASSIUM 3.8 mmol/L (3.4-5.0); TOTAL PROTEIN 7.6 gm/dL (6.4-8.2)
[2020-01-08 08:26] VITALS: BP 130/89; PULSE 92; TEMP 98.1
[2020-01-08 08:53] LABS: BAND 5 % (0-10); LYMPHOCYTE 51 % (20.0-51.0); NEUTROPHILS 26 % (42.0-75.2)
--- NOTE | 2020-01-12 10:00 | NUR ---
Here for cares. With sterile technique right upper arm PICC dressing change done with insertion site cleansed with ChloraPrep 1, chlorhexidine impregnated disc applied, skin prep, StatLock, and Tegaderm applied. No signs or symptoms of IV complications noted. No concerns voiced. Arm wrapped with Goldy to protect catheter.
[2020-01-12 10:09] VITALS: BP 118/63; PULSE 63; TEMP 98.6
[2020-01-12 10:10] LABS: MEAN CELL VOLUME 86 fl (80.0-100.0); MEAN CORPUSCULAR HGB CONC 34 g/dl (33.0-37.0); MEAN PLATELET VOLUME 12.4 fl (7.4-10.4); RED BLOOD COUNT 2.36 M/mm3 (4.20-5.60); REDCELL DISTRIBUTION WIDTH-CV 12.9 % (11.5-14.5)
[2020-01-12 10:20] LABS: HEMATOCRIT 20.3 % (42.0-52.0); HEMOGLOBIN 6.9 g/dl (13.5-18.0); MEAN CORPUSCULAR HEMOGLOBIN 29 pg (27.0-31.0)
[2020-01-12 10:21] LABS: PLATELET COUNT 42 K/mm3 (130-400)
[2020-01-12 10:23] LABS: ALBUMIN 4.1 gm/dL (3.5-5.0); BILIRUBIN,TOTAL 0.3 mg/dL (0.0-1.0); CALCIUM 9.5 mg/dL (8.4-10.2); CREATININE, serum 0.8 (0.66-1.25); POTASSIUM 3.9 mmol/L (3.4-5.0); TOTAL PROTEIN 7.5 gm/dL (6.4-8.2)
[2020-01-12 12:21] LABS: BAND 4 % (0-10); LYMPHOCYTE 46 % (20.0-51.0); METAMYELOCYTE 1 % (0-0); NEUTROPHILS 37 % (42.0-75.2); PLATELET ESTIMATE DECREASED (NORMAL)
[2020-01-13] VITALS (8 sets, daily range): BP systolic 114–125; BP diastolic 71–82; PULSE 68–97; TEMP 97.4–97.8
[2020-01-19 10:29] LABS: HEMOGLOBIN 9.3 g/dl (13.5-18.0); MEAN CELL VOLUME 91 fl (80.0-100.0); MEAN CORPUSCULAR HEMOGLOBIN 30 pg (27.0-31.0); MEAN CORPUSCULAR HGB CONC 33 g/dl (33.0-37.0); MEAN PLATELET VOLUME 10.9 fl (7.4-10.4); PLATELET COUNT 73 K/mm3 (130-400); RED BLOOD COUNT 3.08 M/mm3 (4.20-5.60)
[2020-01-19 10:39] LABS: ALBUMIN 4.4 gm/dL (3.5-5.0); BILIRUBIN,TOTAL 0.5 mg/dL (0.0-1.0); CALCIUM 9.5 mg/dL (8.4-10.2); CREATININE, serum 0.85 (0.66-1.25); POTASSIUM 4.3 mmol/L (3.4-5.0); TOTAL PROTEIN 7.8 gm/dL (6.4-8.2)
[2020-01-19 10:53] VITALS: BP 109/72; PULSE 82; TEMP 97.9
[2020-01-19 11:11] LABS: ANISOCYTOSIS 1+; BAND 2 % (0-10); LYMPHOCYTE 32 % (20.0-51.0); METAMYELOCYTE 2 % (0-0); MICROCYTOSIS 1+; NEUTROPHILS 49 % (42.0-75.2); NUCLEATED RED BLOOD CELL 3 (0-6); PLATELET ESTIMATE DECREASED (NORMAL); POIKILOCYTOSIS 1+
[2020-01-21 08:31] LABS: PATHOLOGY DIFF REVIEW OK
[2020-01-26 11:39] VITALS: BP 121/80; PULSE 57; TEMP 97.6
[2020-01-26 11:43] LABS: MEAN CELL VOLUME 95 fl (80.0-100.0); MEAN CORPUSCULAR HGB CONC 33 g/dl (33.0-37.0); PLATELET COUNT 96 K/mm3 (130-400); RED BLOOD COUNT 2.94 M/mm3 (4.20-5.60)
[2020-01-26 11:47] LABS: HEMATOCRIT 27.9 % (42.0-52.0); HEMOGLOBIN 9.2 g/dl (13.5-18.0); MEAN CORPUSCULAR HEMOGLOBIN 31 pg (27.0-31.0)
[2020-01-26 11:55] LABS: ALBUMIN 4.2 gm/dL (3.5-5.0); BILIRUBIN,TOTAL 0.5 mg/dL (0.0-1.0); CALCIUM 9.4 mg/dL (8.4-10.2); CREATININE, serum 0.69 (0.66-1.25); POTASSIUM 4.3 mmol/L (3.4-5.0); TOTAL PROTEIN 7.4 gm/dL (6.4-8.2)
[2020-01-26 12:48] LABS: ANISOCYTOSIS 2+; BAND 3 % (0-10); BASOPHIL 1 % (0-2); LYMPHOCYTE 20 % (20.0-51.0); NEUTROPHILS 62 % (42.0-75.2); NUCLEATED RED BLOOD CELL 2 (0-6); POLYCHROMASIA 1+
[2020-02-02 10:00] VITALS: BP 144/79; PULSE 53; TEMP 97.9
--- NOTE | 2020-02-02 10:00 | NUR ---
PT STATED HE WILL BE AT ON SUNDAY FOR HIS CHEMOTHERAPY.
[2020-02-02 10:28] LABS: HEMOGLOBIN 10.1 g/dl (13.5-18.0); MEAN CELL VOLUME 98 fl (80.0-100.0); MEAN CORPUSCULAR HEMOGLOBIN 32 pg (27.0-31.0); MEAN CORPUSCULAR HGB CONC 33 g/dl (33.0-37.0); MEAN PLATELET VOLUME 12.3 fl (7.4-10.4); PLATELET COUNT 140 K/mm3 (130-400); RED BLOOD COUNT 3.16 M/mm3 (4.20-5.60)
[2020-02-02 10:29] LABS: HEMATOCRIT 31.1 % (42.0-52.0)
[2020-02-02 10:30] LABS: ALBUMIN 4.4 gm/dL (3.5-5.0); BILIRUBIN,TOTAL 0.7 mg/dL (0.0-1.0); CALCIUM 9.4 mg/dL (8.4-10.2); CREATININE, serum 0.79 (0.66-1.25); TOTAL PROTEIN 7.6 gm/dL (6.4-8.2)
[2020-02-02 10:44] LABS: BAND 3 % (0-10); LYMPHOCYTE 13 % (20.0-51.0); NEUTROPHILS 80 % (42.0-75.2); NUCLEATED RED BLOOD CELL 1 (0-6)
[2020-02-02 10:45] LABS: ANISOCYTOSIS 3+; PLATELET ESTIMATE NORMAL (NORMAL)
[2020-02-04 11:15] LABS: HEMOGLOBIN 10.6 g/dl (13.5-18.0); MEAN CELL VOLUME 100 fl (80.0-100.0); MEAN CORPUSCULAR HEMOGLOBIN 32 pg (27.0-31.0); MEAN CORPUSCULAR HGB CONC 32 g/dl (33.0-37.0); MEAN PLATELET VOLUME 9.9 fl (7.4-10.4); PLATELET COUNT 151 K/mm3 (130-400); RED BLOOD COUNT 3.29 M/mm3 (4.20-5.60)
[2020-02-04 11:48] LABS: ANISOCYTOSIS 3+; BAND 1 % (0-10); BASOPHIL 1 % (0-2); EOSINOPHIL 1 % (0-4); LYMPHOCYTE 23 % (20.0-51.0); NEUTROPHILS 60 % (42.0-75.2); NUCLEATED RED BLOOD CELL 2 (0-6); STOMATOCYTE 1+
[2020-02-04 11:49] LABS: POLYCHROMASIA 1+
[2020-02-04 11:51] VITALS: BP 141/78; PULSE 66; TEMP 98
[2020-02-04 11:51] LABS: MICROCYTOSIS 1+; PLATELET ESTIMATE NORMAL (NORMAL)
--- NOTE | 2020-02-11 10:19 | NUR ---
LM IN REGARDS TO ID SCREENING
[2020-02-12 10:00] VITALS: BP 132/78; PULSE 46; TEMP 97.8
--- NOTE | 2020-02-12 10:00 | NUR ---
PT STATES HE RECEIVED CHEMO YESTERDAY. HE WILL BE GETTING A CALL FROM [facility] TO SET UP HIS APPT IN MARCH. IN THE MEANTIME HE WILL BE COMING HERE FOR CONTINUED PICC DRESSIN CHANGES AND LAB DRAWS. HE WILL CONTINUE TO SEE HIS PHYSICIAN EVERY 2 WEEKS.
[2020-02-12 11:08] LABS: HEMOGLOBIN 11.4 g/dl (13.5-18.0); MEAN CELL VOLUME 102 fl (80.0-100.0); MEAN CORPUSCULAR HEMOGLOBIN 33 pg (27.0-31.0); MEAN CORPUSCULAR HGB CONC 33 g/dl (33.0-37.0); MEAN PLATELET VOLUME 9.9 fl (7.4-10.4); PLATELET COUNT 184 K/mm3 (130-400); RED BLOOD COUNT 3.43 M/mm3 (4.20-5.60); REDCELL DISTRIBUTION WIDTH-CV 23.6 % (11.5-14.5)
[2020-02-12 11:10] LABS: HEMATOCRIT 34.9 % (42.0-52.0)
[2020-02-12 11:15] LABS: ALBUMIN 4.2 gm/dL (3.5-5.0); BILIRUBIN,TOTAL 0.9 mg/dL (0.0-1.0); CALCIUM 9.6 mg/dL (8.4-10.2); CREATININE, serum 0.79 (0.66-1.25); POTASSIUM 4.2 mmol/L (3.4-5.0); TOTAL PROTEIN 7.5 gm/dL (6.4-8.2)
[2020-02-12 11:53] LABS: ANISOCYTOSIS 3+; BAND 1 % (0-10); LYMPHOCYTE 7 % (20.0-51.0); NEUTROPHILS 86 % (42.0-75.2); PLATELET ESTIMATE NORMAL (NORMAL); SCHISTOCYTES 1+
--- NOTE | 2020-02-16 10:15 | NUR ---
here for cares. With sterile technique right upper arm PICC dressing change done with insertion site cleansed with ChloraPrep 1, chlorhexidine impregnated disc applied, skin prep, StatLock, and Tegaderm applied. No signs or symptoms of IV complications noted. No concerns voiced. Arm wrapped with Goldy to protect catheter. Patient to return to express unit for cares. Patient voiced understanding of instructions.
[2020-02-16 10:18] LABS: HEMOGLOBIN 10.7 g/dl (13.5-18.0); MEAN CELL VOLUME 102 fl (80.0-100.0); MEAN CORPUSCULAR HEMOGLOBIN 34 pg (27.0-31.0); MEAN CORPUSCULAR HGB CONC 33 g/dl (33.0-37.0); MEAN PLATELET VOLUME 9.4 fl (7.4-10.4); PLATELET COUNT 97 K/mm3 (130-400); RED BLOOD COUNT 3.16 M/mm3 (4.20-5.60); REDCELL DISTRIBUTION WIDTH-CV 22.4 % (11.5-14.5)
[2020-02-16 10:22] LABS: HEMATOCRIT 32.1 % (42.0-52.0)
[2020-02-16 10:23] VITALS: BP 110/74; PULSE 81; TEMP 98.4
[2020-02-16 10:33] LABS: ALBUMIN 4.1 gm/dL (3.5-5.0); BILIRUBIN,TOTAL 0.8 mg/dL (0.0-1.0); CALCIUM 9.2 mg/dL (8.4-10.2); CREATININE, serum 0.75 (0.66-1.25); MAGNESIUM 2.2 mg/dL (1.6-2.3); TOTAL PROTEIN 7.4 gm/dL (6.4-8.2)
[2020-02-16 10:48] LABS: BAND 2 % (0-10); LYMPHOCYTE 19 % (20.0-51.0); NEUTROPHILS 79 % (42.0-75.2)
[2020-02-16 10:49] LABS: ANISOCYTOSIS 2+; MICROCYTOSIS 1+; PLATELET ESTIMATE DECREASED (NORMAL); POIKILOCYTOSIS 1+
[2020-02-19 10:38] LABS: HEMATOCRIT 29.2 % (42.0-52.0); HEMOGLOBIN 9.7 g/dl (13.5-18.0); MEAN CELL VOLUME 102 fl (80.0-100.0); MEAN CORPUSCULAR HEMOGLOBIN 34 pg (27.0-31.0); MEAN CORPUSCULAR HGB CONC 33 g/dl (33.0-37.0); RED BLOOD COUNT 2.86 M/mm3 (4.20-5.60); REDCELL DISTRIBUTION WIDTH-CV 21.2 % (11.5-14.5)
[2020-02-19 10:47] LABS: BILIRUBIN,TOTAL 0.5 mg/dL (0.0-1.0); CALCIUM 9.5 mg/dL (8.4-10.2); CREATININE, serum 0.81 (0.66-1.25); POTASSIUM 4.5 mmol/L (3.4-5.0); TOTAL PROTEIN 7.1 gm/dL (6.4-8.2)
[2020-02-19 10:56] LABS: PLATELET COUNT 34 K/mm3 (130-400)
[2020-02-19 10:58] VITALS: BP 111/62; PULSE 73; TEMP 97.8
[2020-02-19 11:47] LABS: LYMPHOCYTE 25 % (20.0-51.0); NEUTROPHILS 69 % (42.0-75.2)
[2020-02-19 11:50] LABS: ANISOCYTOSIS 2+; MICROCYTOSIS 1+; PLATELET ESTIMATE DECREASED (NORMAL); POIKILOCYTOSIS 1+
[2020-02-23] VITALS (10 sets, daily range): BP systolic 101–125; BP diastolic 51–76; PULSE 56–79; TEMP 97.6–98.6
--- NOTE | 2020-02-23 09:15 | NUR ---
here for cares. With sterile technique right upper arm PICC dressing change done with insertion site cleansed with ChloraPrep 1, chlorhexidine impregnated disc applied, skin prep, StatLock, and Tegaderm applied. No signs or symptoms of IV complications noted. No concerns voiced. Arm wrapped with Goldy to protect catheter. Patient to return next week for cares. Patient voiced understanding of instructions.
[2020-02-23 09:45] LABS: MEAN CELL VOLUME 100 fl (80.0-100.0); MEAN CORPUSCULAR HGB CONC 34 g/dl (33.0-37.0); RED BLOOD COUNT 2.62 M/mm3 (4.20-5.60); REDCELL DISTRIBUTION WIDTH-CV 20.1 % (11.5-14.5)
[2020-02-23 09:46] LABS: ALBUMIN 4.2 gm/dL (3.5-5.0); BILIRUBIN,TOTAL 0.6 mg/dL (0.0-1.0); CALCIUM 9.3 mg/dL (8.4-10.2); CREATININE, serum 0.79 (0.66-1.25); MAGNESIUM 2.1 mg/dL (1.6-2.3); POTASSIUM 4.4 mmol/L (3.4-5.0); TOTAL PROTEIN 7.3 gm/dL (6.4-8.2)
[2020-02-23 10:10] LABS: HEMATOCRIT 26.2 % (42.0-52.0); HEMOGLOBIN 8.9 g/dl (13.5-18.0); MEAN CORPUSCULAR HEMOGLOBIN 34 pg (27.0-31.0)
[2020-02-23 10:12] LABS: PLATELET COUNT 3 K/mm3 (130-400)
[2020-02-23 11:11] LABS: LYMPHOCYTE 59 % (20.0-51.0); NEUTROPHILS 38 % (42.0-75.2)
[2020-02-23 11:12] LABS: PLATELET ESTIMATE DECREASED (NORMAL)
[2020-02-23 11:14] LABS: ANISOCYTOSIS 2+; MICROCYTOSIS 2+
[2020-02-23 11:16] LABS: POIKILOCYTOSIS 1+
--- NOTE | 2020-02-23 12:06 | NUR ---
Per nikos Goss in blood bank she is waiting to hear back from [facility] to see if platelets can be sent by this evening with a front load trash truck driver.This nurse spoke with pt.pt agrees to keep phone close if platelets arrive he will come in.
--- NOTE | 2020-02-23 12:37 | NUR ---
Per blood bank,platelets should be here by 3pm.This nurse called pt and he agreed to arrive by 330pm today for platelet infusion.
[2020-02-26 10:58] VITALS: BP 117/97; PULSE 61; TEMP 97.7
[2020-02-26 11:18] LABS: MEAN CELL VOLUME 98 fl (80.0-100.0); MEAN CORPUSCULAR HGB CONC 35 g/dl (33.0-37.0); RED BLOOD COUNT 2.38 M/mm3 (4.20-5.60)
[2020-02-26 11:21] LABS: ALBUMIN 4.1 gm/dL (3.5-5.0); BILIRUBIN,TOTAL 0.4 mg/dL (0.0-1.0); CALCIUM 9.7 mg/dL (8.4-10.2); CREATININE, serum 0.8 (0.66-1.25); POTASSIUM 4.3 mmol/L (3.4-5.0); TOTAL PROTEIN 7.4 gm/dL (6.4-8.2)
[2020-02-26 11:22] LABS: HEMATOCRIT 23.4 % (42.0-52.0); HEMOGLOBIN 8.1 g/dl (13.5-18.0); MEAN CORPUSCULAR HEMOGLOBIN 34 pg (27.0-31.0)
[2020-02-26 11:24] LABS: PLATELET COUNT 22 K/mm3 (130-400)
[2020-02-26 12:26] LABS: NEUTROPHILS 4 % (42.0-75.2)
[2020-02-26 12:31] LABS: ANISOCYTOSIS 2+
[2020-02-26 12:32] LABS: MICROCYTOSIS 2+; PLATELET ESTIMATE DECREASED (NORMAL)
[2020-02-26 12:33] LABS: LYMPHOCYTE 96 % (20.0-51.0)
--- NOTE | 2020-03-01 09:00 | NUR ---
PICC intact right upper arm. With sterile technique right upper arm PICC dressing change done with session site cleansed with ChloraPrep 1, chlorhexidine impregnated disc applied, skin prep, StatLock, and Tegaderm applied. No signs or symptoms of IV complications noted. No concerns voiced. Arm wrapped with Goldy to protect catheter. Patient to continue with cares the express unit. Patient voiced understanding of instructions.
[2020-03-01 09:15] VITALS: BP 112/76; PULSE 67; TEMP 98.2
[2020-03-01 09:27] LABS: MEAN CELL VOLUME 98 fl (80.0-100.0); MEAN CORPUSCULAR HGB CONC 35 g/dl (33.0-37.0); REDCELL DISTRIBUTION WIDTH-CV 18.5 % (11.5-14.5)
[2020-03-01 09:41] LABS: ALBUMIN 3.9 gm/dL (3.5-5.0); BILIRUBIN,TOTAL 0.3 mg/dL (0.0-1.0); CREATININE, serum 0.87 (0.66-1.25); MAGNESIUM 1.9 mg/dL (1.6-2.3); POTASSIUM 4.3 mmol/L (3.4-5.0); TOTAL PROTEIN 7.1 gm/dL (6.4-8.2)
[2020-03-01 09:43] LABS: HEMATOCRIT 20.5 % (42.0-52.0); HEMOGLOBIN 7.1 g/dl (13.5-18.0); MEAN CORPUSCULAR HEMOGLOBIN 34 pg (27.0-31.0)
[2020-03-01 09:45] LABS: PLATELET COUNT 8 K/mm3 (130-400)
[2020-03-01 11:04] LABS: BAND 1 % (0-10); LYMPHOCYTE 99 % (20.0-51.0); PLATELET ESTIMATE DECREASED (NORMAL)
[2020-03-02] VITALS (10 sets, daily range): BP systolic 112–129; BP diastolic 54–82; PULSE 53–68; TEMP 97.6–97.9
[~2020-03-02] VITALS: Ht 185.4 cm; Wt 95.5 kg
[~2020-03-02 13:00] MED LIST changes: +CLEOCIN HCL300 MG PO
== END 2020-03-03 | disposition home or self-care (01) ==
LOC: EUO
PROVIDERS: Internal Medicine
DX: Z45.2 Encounter for adjustment and management of vascular access device (principal); C92.00 Acute myeloblastic leukemia, not having achieved remission; D46.C Myelodysplastic syndrome with isolated del(5q) chromosomal abnormality
CPT/HCPCS: C1751; C1892; J7050; P9037; P9040

== ENCOUNTER 2020-03-31 10:00 | Outpatient (RCR) | payer MEDICAID ==
[2020-03-04 10:56] LABS: MEAN CELL VOLUME 93 fl (80.0-100.0); MEAN CORPUSCULAR HGB CONC 35 g/dl (33.0-37.0); RED BLOOD COUNT 2.79 M/mm3 (4.20-5.60); REDCELL DISTRIBUTION WIDTH-CV 20.3 % (11.5-14.5)
[2020-03-04 11:08] LABS: ALBUMIN 4.2 gm/dL (3.5-5.0); BILIRUBIN,TOTAL 0.4 mg/dL (0.0-1.0); CALCIUM 9.6 mg/dL (8.4-10.2); CREATININE, serum 0.99 (0.66-1.25); POTASSIUM 4.6 mmol/L (3.4-5.0); TOTAL PROTEIN 7.5 gm/dL (6.4-8.2)
[2020-03-04 11:15] LABS: HEMATOCRIT 25.8 % (42.0-52.0); MEAN CORPUSCULAR HEMOGLOBIN 32 pg (27.0-31.0)
[2020-03-04 11:17] LABS: PLATELET COUNT 20 K/mm3 (130-400)
[2020-03-04 11:34] LABS: ANISOCYTOSIS 2+; BAND 2 % (0-10); LYMPHOCYTE 92 % (20.0-51.0); NEUTROPHILS 6 % (42.0-75.2); PLATELET ESTIMATE DECREASED (NORMAL)
[2020-03-04 11:43] VITALS: BP 125/68; PULSE 49; TEMP 98.1
--- NOTE | 2020-03-08 10:30 | NUR ---
here for cares. With sterile technique right upper arm PICC dressing change done with insertion site cleansed with ChloraPrep 1, chlorhexidine impregnated disc applied, skin prep, StatLock, and tear applied. No signs or symptoms of IV complications noted. No concerns voiced. Arm wrapped with Goldy to protect catheter. Patient to return as scheduled for cares. Patient voiced understanding of instructions.
[2020-03-08 10:42] VITALS: BP 148/83; PULSE 69; TEMP 97.9
[2020-03-08 10:55] LABS: ALBUMIN 4.1 gm/dL (3.5-5.0); BILIRUBIN,TOTAL 0.3 mg/dL (0.0-1.0); CALCIUM 9.3 mg/dL (8.4-10.2); CREATININE, serum 0.93 (0.66-1.25); MAGNESIUM 1.9 mg/dL (1.6-2.3); POTASSIUM 4.1 mmol/L (3.4-5.0); TOTAL PROTEIN 7.3 gm/dL (6.4-8.2)
[2020-03-08 10:57] LABS: MEAN CELL VOLUME 93 fl (80.0-100.0); MEAN CORPUSCULAR HGB CONC 35 g/dl (33.0-37.0); RED BLOOD COUNT 2.88 M/mm3 (4.20-5.60); REDCELL DISTRIBUTION WIDTH-CV 18.6 % (11.5-14.5)
[2020-03-08 11:31] LABS: HEMATOCRIT 26.8 % (42.0-52.0); HEMOGLOBIN 9.3 g/dl (13.5-18.0); MEAN CORPUSCULAR HEMOGLOBIN 32 pg (27.0-31.0)
[2020-03-08 11:53] LABS: PLATELET COUNT 8 K/mm3 (130-400)
[2020-03-08 12:01] LABS: BAND 1 % (0-10); LYMPHOCYTE 72 % (20.0-51.0); NEUTROPHILS 19 % (42.0-75.2); PLATELET ESTIMATE DECREASED (NORMAL)
[2020-03-09] VITALS (7 sets, daily range): BP systolic 98–133; BP diastolic 57–87; PULSE 60–75; TEMP 98–98.2
[2020-03-11 10:33] VITALS: BP 119/78; PULSE 59; TEMP 98.1
[2020-03-11 10:40] LABS: MEAN CELL VOLUME 92 fl (80.0-100.0); MEAN CORPUSCULAR HGB CONC 35 g/dl (33.0-37.0); MEAN PLATELET VOLUME 8.6 fl (7.4-10.4); PLATELET COUNT 50 K/mm3 (130-400); REDCELL DISTRIBUTION WIDTH-CV 18.2 % (11.5-14.5)
[2020-03-11 10:43] LABS: HEMATOCRIT 25.8 % (42.0-52.0); HEMOGLOBIN 8.9 g/dl (13.5-18.0); MEAN CORPUSCULAR HEMOGLOBIN 32 pg (27.0-31.0)
[2020-03-11 11:07] LABS: ALBUMIN 4.2 gm/dL (3.5-5.0); BILIRUBIN,TOTAL 0.3 mg/dL (0.0-1.0); CALCIUM 9.4 mg/dL (8.4-10.2); CREATININE, serum 0.84 (0.66-1.25); POTASSIUM 4.2 mmol/L (3.4-5.0); TOTAL PROTEIN 7.6 gm/dL (6.4-8.2)
[2020-03-11 12:11] LABS: BAND 2 % (0-10); LYMPHOCYTE 64 % (20.0-51.0); NEUTROPHILS 26 % (42.0-75.2)
[2020-03-11 12:13] LABS: ANISOCYTOSIS 1+; PLATELET ESTIMATE DECREASED (NORMAL)
[2020-03-15 10:17] VITALS: BP 126/78; PULSE 59; TEMP 98.1
[2020-03-15 10:48] LABS: MEAN CELL VOLUME 91 fl (80.0-100.0); MEAN CORPUSCULAR HGB CONC 35 g/dl (33.0-37.0); RED BLOOD COUNT 2.72 M/mm3 (4.20-5.60); REDCELL DISTRIBUTION WIDTH-CV 18.3 % (11.5-14.5)
[2020-03-15 11:00] LABS: ALBUMIN 4.2 gm/dL (3.5-5.0); BILIRUBIN,TOTAL 0.3 mg/dL (0.0-1.0); CALCIUM 9.4 mg/dL (8.4-10.2); CREATININE, serum 0.94 (0.66-1.25); MAGNESIUM 2.1 mg/dL (1.6-2.3); POTASSIUM 4.2 mmol/L (3.4-5.0); TOTAL PROTEIN 7.5 gm/dL (6.4-8.2)
[2020-03-15 11:26] LABS: HEMATOCRIT 24.8 % (42.0-52.0); HEMOGLOBIN 8.7 g/dl (13.5-18.0); MEAN CORPUSCULAR HEMOGLOBIN 32 pg (27.0-31.0)
[2020-03-15 11:28] LABS: PLATELET COUNT 23 K/mm3 (130-400)
[2020-03-15 12:56] LABS: BAND 6 % (0-10); LYMPHOCYTE 70 % (20.0-51.0); NEUTROPHILS 21 % (42.0-75.2); PLATELET ESTIMATE DECREASED (NORMAL)
--- NOTE | 2020-03-18 10:19 | NUR ---
Pt arrived today for PICC cares.per pt he reports "it feels like a flutter,like it is in my neck." Spoke with SRINIVASAN Kaminski services.Portable chest xray ordered.
[2020-03-18 10:21] VITALS: BP 126/96; PULSE 58; TEMP 98.2
--- NOTE | 2020-03-18 10:37 | NUR ---
Per Radiology PICC line in correct placement.Pt discharged via ambulatory
[2020-03-18 10:41] LABS: ALBUMIN 4.3 gm/dL (3.5-5.0); BILIRUBIN,TOTAL 0.2 mg/dL (0.0-1.0); CALCIUM 9.5 mg/dL (8.4-10.2); CREATININE, serum 0.98 (0.66-1.25); POTASSIUM 4.3 mmol/L (3.4-5.0); TOTAL PROTEIN 7.8 gm/dL (6.4-8.2)
[2020-03-18 11:50] LABS: MEAN CELL VOLUME 91 fl (80.0-100.0); MEAN CORPUSCULAR HGB CONC 35 g/dl (33.0-37.0); RED BLOOD COUNT 2.92 M/mm3 (4.20-5.60); REDCELL DISTRIBUTION WIDTH-CV 18.5 % (11.5-14.5)
[2020-03-18 11:55] LABS: HEMATOCRIT 26.6 % (42.0-52.0); HEMOGLOBIN 9.3 g/dl (13.5-18.0); MEAN CORPUSCULAR HEMOGLOBIN 32 pg (27.0-31.0)
[2020-03-18 11:57] LABS: PLATELET COUNT 14 K/mm3 (130-400)
[2020-03-18 12:34] LABS: ANISOCYTOSIS 1+; BAND 2 % (0-10); LYMPHOCYTE 71 % (20.0-51.0); NEUTROPHILS 19 % (42.0-75.2); NUCLEATED RED BLOOD CELL 1 (0-6); PLATELET ESTIMATE DECREASED (NORMAL)
[2020-03-20 11:25] VITALS: BP 140/91; PULSE 84; TEMP 98.3
--- NOTE | 2020-03-20 11:36 | NUR ---
Pt up to room 318 for platelet transfusion. Pt has ALON PICC in place, red port used for transfusion, flushes well w/ good blood return. Platelet transfusion started at 60ml/hr w/o complications. VSS obtained prior and stable. Pt denies any pain or complications. Pt provided w/ turkey sandwich box and cuate crackers per request. No other needs at this time. This nurse remaining at pt bedside.
[2020-03-20 11:48] VITALS: BP 145/90; PULSE 88
[2020-03-20 12:03] VITALS: BP 141/89; PULSE 8
[2020-03-20 12:33] VITALS: BP 146/76; PULSE 83
[2020-03-20 13:33] VITALS: BP 145/90; PULSE 85; TEMP 97.4
--- NOTE | 2020-03-20 14:00 | NUR ---
Pt tolerated platelet transfusion w/o complications to ALON PICC. Transfusion completed at this time. Pt escorted out to ER entrance to be picked up by ride. No further needs at this time.
--- NOTE | 2020-03-22 10:25 | NUR ---
here for cares. With sterile technique right upper arm PICC dressing change done with insertion site cleansed with ChloraPrep 1, chlorhexidine impregnated disc applied, skin prep, StatLock, and Tegaderm applied. No signs or symptoms of IV complications noted. No concerns voiced. Arm wrapped with Goldy to protect catheter. Return to the express unit is scheduled. Patient voiced understanding of instructions.
[2020-03-22 10:37] VITALS: BP 121/67; PULSE 76; TEMP 98.1
[2020-03-22 10:41] LABS: MEAN CELL VOLUME 92 fl (80.0-100.0); MEAN CORPUSCULAR HGB CONC 35 g/dl (33.0-37.0); RED BLOOD COUNT 2.28 M/mm3 (4.20-5.60); REDCELL DISTRIBUTION WIDTH-CV 18.8 % (11.5-14.5)
[2020-03-22 10:42] LABS: MEAN PLATELET VOLUME 8.3 fl (7.4-10.4)
[2020-03-22 10:49] LABS: HEMOGLOBIN 7.3 g/dl (13.5-18.0); MEAN CORPUSCULAR HEMOGLOBIN 32 pg (27.0-31.0)
[2020-03-22 10:50] LABS: PLATELET COUNT 48 K/mm3 (130-400)
[2020-03-22 11:05] LABS: BILIRUBIN,TOTAL 0.4 mg/dL (0.0-1.0); CREATININE, serum 0.79 (0.66-1.25); MAGNESIUM 1.9 mg/dL (1.6-2.3); TOTAL PROTEIN 7.2 gm/dL (6.4-8.2)
[2020-03-22 13:29] LABS: ANISOCYTOSIS 2+; BAND 2 % (0-10); LYMPHOCYTE 50 % (20.0-51.0); METAMYELOCYTE 2 % (0-0); MYELOCYTE 1 % (0-0); NEUTROPHILS 36 % (42.0-75.2); PLATELET ESTIMATE DECREASED (NORMAL)
[2020-03-23] VITALS (7 sets, daily range): BP systolic 113–124; BP diastolic 62–83; PULSE 53–89; TEMP 97.6–97.8
[2020-03-25 10:00] VITALS: BP 121/83; PULSE 103; TEMP 98.5
[2020-03-25 10:36] LABS: BILIRUBIN,TOTAL 0.5 mg/dL (0.0-1.0); CALCIUM 9.1 mg/dL (8.4-10.2); CREATININE, serum 0.86 (0.66-1.25); MEAN CELL VOLUME 90 fl (80.0-100.0); MEAN CORPUSCULAR HGB CONC 35 g/dl (33.0-37.0); POTASSIUM 3.7 mmol/L (3.4-5.0); RED BLOOD COUNT 2.97 M/mm3 (4.20-5.60); REDCELL DISTRIBUTION WIDTH-CV 20.7 % (11.5-14.5); TOTAL PROTEIN 7.1 gm/dL (6.4-8.2)
[2020-03-25 11:24] LABS: HEMATOCRIT 26.6 % (42.0-52.0); HEMOGLOBIN 9.2 g/dl (13.5-18.0); MEAN CORPUSCULAR HEMOGLOBIN 31 pg (27.0-31.0)
[2020-03-25 11:26] LABS: PLATELET COUNT 40 K/mm3 (130-400)
[2020-03-25 12:08] LABS: BAND 8 % (0-10); LYMPHOCYTE 36 % (20.0-51.0); NEUTROPHILS 47 % (42.0-75.2); NUCLEATED RED BLOOD CELL 1 (0-6); PLATELET ESTIMATE DECREASED (NORMAL)
[2020-03-25 12:09] LABS: ANISOCYTOSIS 1+; HYPOCHROMIA 1+
[2020-03-25 12:10] LABS: SCHISTOCYTES 1+
[2020-03-29 10:00] VITALS: BP 138/84; PULSE 74; TEMP 98.4
--- NOTE | 2020-03-29 10:00 | NUR ---
PICC intact right upper arm with sterile dressing change done with insertion site cleansed with chloraprep x 1, chlorhexidine impregnated disk applied, skin prep, stat lock, and tegaderm applied. no signs or symptoms of IV complications noted. no concerns voiced. to continue with cares in EU. voiced understanding of instructions.
[2020-03-29 10:30] LABS: MEAN CELL VOLUME 90 fl (80.0-100.0); MEAN CORPUSCULAR HGB CONC 34 g/dl (33.0-37.0); RED BLOOD COUNT 3.22 M/mm3 (4.20-5.60); REDCELL DISTRIBUTION WIDTH-CV 20.2 % (11.5-14.5)
[2020-03-29 10:34] LABS: HEMOGLOBIN 9.8 g/dl (13.5-18.0); MEAN CORPUSCULAR HEMOGLOBIN 30 pg (27.0-31.0); PLATELET COUNT 43 K/mm3 (130-400)
[2020-03-29 10:40] LABS: ALBUMIN 4.4 gm/dL (3.5-5.0); BILIRUBIN,TOTAL 0.5 mg/dL (0.0-1.0); CALCIUM 9.2 mg/dL (8.4-10.2); CREATININE, serum 0.88 (0.66-1.25); MAGNESIUM 2.1 mg/dL (1.6-2.3); POTASSIUM 3.8 mmol/L (3.4-5.0); TOTAL PROTEIN 7.7 gm/dL (6.4-8.2)
[2020-03-29 11:03] LABS: BAND 4 % (0-10); EOSINOPHIL 1 % (0-4); LYMPHOCYTE 42 % (20.0-51.0)
[2020-03-29 11:04] LABS: ANISOCYTOSIS 2+; METAMYELOCYTE 1 % (0-0); NEUTROPHILS 45 % (42.0-75.2); PLATELET ESTIMATE DECREASED (NORMAL)
[~2020-03-31] VITALS: Ht 185.4 cm; Wt 97.5 kg
[2020-03-31 10:20] VITALS: BP 111/72; PULSE 61; TEMP 98.3
[2020-03-31 10:38] LABS: ALBUMIN 4.1 gm/dL (3.5-5.0); BILIRUBIN,TOTAL 0.4 mg/dL (0.0-1.0); CALCIUM 9.5 mg/dL (8.4-10.2); CREATININE, serum 0.73 (0.66-1.25); TOTAL PROTEIN 7.3 gm/dL (6.4-8.2)
[2020-03-31 10:41] LABS: MEAN CELL VOLUME 91 fl (80.0-100.0); MEAN CORPUSCULAR HGB CONC 34 g/dl (33.0-37.0); RED BLOOD COUNT 2.97 M/mm3 (4.20-5.60); REDCELL DISTRIBUTION WIDTH-CV 20.2 % (11.5-14.5)
[2020-03-31 10:43] LABS: HEMATOCRIT 27.1 % (42.0-52.0); HEMOGLOBIN 9.2 g/dl (13.5-18.0); MEAN CORPUSCULAR HEMOGLOBIN 31 pg (27.0-31.0)
[2020-03-31 10:44] LABS: PLATELET COUNT 47 K/mm3 (130-400)
[2020-03-31 10:59] LABS: BAND 4 % (0-10); LYMPHOCYTE 49 % (20.0-51.0); METAMYELOCYTE 2 % (0-0); NEUTROPHILS 44 % (42.0-75.2); PLATELET ESTIMATE DECREASED (NORMAL)
[2020-03-31 11:00] LABS: ANISOCYTOSIS 2+
--- NOTE | 2020-04-06 13:07 | NUR ---
PER PT REPORT HE WAS ADMIITED TO [facility] AFTER HERNIA REPAIR.PER PT HE WILL COME ON SUNDAY USUAL.MESSAGE LEFT WITH ROSS FOR NEW ORDERS.
[2020-04-07] MEDS ORDERED: ULTRAM 50MG TAB50 MG PO (10:31)
[2020-04-07] MEDS ORDERED: OXY IR5 MG PO (10:31)
[2020-04-07] MEDS ORDERED: [UNRECOGNIZED DRUG - REMARK] (10:31)
[2020-04-15] MEDS ORDERED: STOOL SOFTENER100 M2 PO (10:19)
== END 2020-04-06 13:10 | disposition home or self-care (01) ==
LOC: EUO 10:00
PROVIDERS: Internal Medicine
DX: Z45.2 Encounter for adjustment and management of vascular access device (principal); C92.A0 Acute myeloid leukemia with multilineage dysplasia, not having achieved remission; M41.84 Other forms of scoliosis, thoracic region; C92.00 Acute myeloblastic leukemia, not having achieved remission; D46.C Myelodysplastic syndrome with isolated del(5q) chromosomal abnormality
CPT/HCPCS: J7050; P9037; P9040

== ENCOUNTER 2020-04-03 23:44 | Emergency (ER) | payer MEDICAID ==
[~2020-04-03] VITALS: Ht 185.4 cm; Wt 97.7 kg
[2020-04-03 23:49] VITALS: TEMP 98.4
[2020-04-04 00:40] LABS: BASO % 0.1 % (0.0-2.0); EOS % 0.1 % (0-4.0); GRAN # 7.4 (1.4-6.5); HEMOGLOBIN 9.4 g/dl (13.5-18.0); MEAN CELL VOLUME 92 fl (80.0-100.0); MEAN CORPUSCULAR HEMOGLOBIN 31 pg (27.0-31.0); MEAN CORPUSCULAR HGB CONC 34 g/dl (33.0-37.0); MONO # 1.1 (0.1-0.6); MONO % 11.3 % (1.7-9.3); PLATELET COUNT 70 K/mm3 (130-400); RED BLOOD COUNT 3.04 M/mm3 (4.20-5.60); REDCELL DISTRIBUTION WIDTH-CV 21.2 % (11.5-14.5)
[2020-04-04 01:11] LABS: ALBUMIN 4.3 gm/dL (3.5-5.0); BILIRUBIN,TOTAL 0.7 mg/dL (0.0-1.0); CALCIUM 9.9 mg/dL (8.4-10.2); CREATININE, serum 0.68 (0.66-1.25); POTASSIUM 3.8 mmol/L (3.4-5.0); TOTAL PROTEIN 7.8 gm/dL (6.4-8.2)
[2020-04-04 03:40] VITALS: BP 131/85; PULSE 75
[2020-04-07] MEDS ORDERED: [UNRECOGNIZED DRUG - REMARK] (10:31)
[2020-04-07] MEDS ORDERED: ULTRAM 50MG TAB50 MG PO (10:31)
[2020-04-07] MEDS ORDERED: OXY IR5 MG PO (10:31)
== END 2020-04-04 04:02 | disposition short-term general hospital (02) ==
LOC: COL.ER 23:44
PROVIDERS: Emergency Medicine
DX: K91.30 Postprocedural intestinal obstruction, unspecified as to partial versus complete (principal); I10 Essential (primary) hypertension; Z87.891 Personal history of nicotine dependence; Z85.6 Personal history of leukemia
CPT/HCPCS: J1170; J2405; J3010; J7030; Q9967

== ENCOUNTER 2020-06-14 08:13 | Outpatient (CLI) | payer MEDICARE, MEDICAID ==
[~2020-06-14] VITALS: Ht 185.4 cm; Wt 96.5 kg
[~2020-06-14 08:13] MED LIST changes: +OXY IR5 MG PO; +STOOL SOFTENER100 M2 PO; +ULTRAM 50MG TAB50 MG PO; +[UNRECOGNIZED DRUG - REMARK]
[2020-06-14 09:02] VITALS: BP 132/82; PULSE 47; TEMP 97.9
[2020-06-14] MEDS ORDERED: PREDNISONE20 MG PO (09:12)
[2020-06-14] MEDS ORDERED: DESYREL 100MG100 MG PO (09:13)
[2020-06-14] MEDS ORDERED: TOPROL XL 25MG25 MG PO (09:14)
--- NOTE | 2020-06-14 09:17 | NUR ---
TO LIZETTE AT 0844- CALL LIGHT IN REACH
[2020-06-14 10:30] VITALS: BP 139/87; PULSE 72; TEMP 98.4
--- NOTE | 2020-06-14 10:30 | NUR ---
TO RM 7 PER CART FOLLOWING A BONE MARROW BX. ALERT ORIENTED X3, TALKING WITH STAFF. RECEIVED OJ AND APPLE SAUCE. DENIES PAIN OR DISCOMFORT AT THIS TIME.
[2020-06-14 10:45] VITALS: BP 136/73; PULSE 73
--- NOTE | 2020-06-14 10:45 | NUR ---
ATE 100% AND TOLERATED WELL TALKING ON OWN CELL PHONE.
[2020-06-14 10:59] VITALS: TEMP 98.2
[2020-06-14 11:00] VITALS: BP 136/91; PULSE 72
--- NOTE | 2020-06-14 11:10 | NUR ---
RECEIVED DISCHARGE INSTRUCTIONS AND VERBALIZED UNDERSTANDING. FLUSHED PURPLE PICC LINE PORT WITH NS 10CC
--- NOTE | 2020-06-14 11:35 | NUR ---
DISCHARGED PER WC BY NURSING STAFF TO PRIVATE CAR IN CARE OF GRANT
--- NOTE | 2020-06-14 12:30 | NUR ---
PATIENT CALLED DR HINSON OFFICE WITH PLATELET COUNT. LAB RESULTS ALSO FAXED TO DR HINSON OFFICE.
== END 2020-06-14 11:40 | disposition home or self-care (01) ==
LOC: SDCO 08:13
DX: D46.0 Refractory anemia without ring sideroblasts, so stated (principal); C92.A0 Acute myeloid leukemia with multilineage dysplasia, not having achieved remission
CPT/HCPCS: J2704; J3010; J7030

== ENCOUNTER 2020-07-05 10:00 | Outpatient (RCR) | payer MEDICARE, MEDICAID ==
[2020-04-07 10:15] VITALS: BP 119/72; PULSE 88; TEMP 98.8
[2020-04-07 10:40] LABS: MEAN CELL VOLUME 94 fl (80.0-100.0); MEAN CORPUSCULAR HGB CONC 33 g/dl (33.0-37.0); MEAN PLATELET VOLUME 11.5 fl (7.4-10.4); PLATELET COUNT 93 K/mm3 (130-400); RED BLOOD COUNT 2.97 M/mm3 (4.20-5.60); REDCELL DISTRIBUTION WIDTH-CV 21.9 % (11.5-14.5)
[2020-04-07 10:41] LABS: HEMOGLOBIN 9.2 g/dl (13.5-18.0); MEAN CORPUSCULAR HEMOGLOBIN 31 pg (27.0-31.0)
[2020-04-07 10:45] LABS: ALBUMIN 4.1 gm/dL (3.5-5.0); BILIRUBIN,TOTAL 0.3 mg/dL (0.0-1.0); CALCIUM 9.5 mg/dL (8.4-10.2); CREATININE, serum 0.88 (0.66-1.25); TOTAL PROTEIN 7.4 gm/dL (6.4-8.2)
[2020-04-07 10:53] LABS: LYMPHOCYTE 19 % (20.0-51.0); METAMYELOCYTE 4 % (0-0); NEUTROPHILS 73 % (42.0-75.2)
[2020-04-07 10:55] LABS: ANISOCYTOSIS 2+; PLATELET ESTIMATE DECREASED (NORMAL)
--- NOTE | 2020-04-12 10:00 | NUR ---
here for cares. With sterile technique right upper arm PICC dressing change done with insertion site cleansed with ChloraPrep 1, chlorhexidine impregnated disc applied, skin prep, StatLock, and Tegaderm applied. No signs or symptoms of IV complications noted. No concerns voiced. Patient to continue with cares in the express unit as scheduled. Patient voiced understanding of instructions.
[2020-04-12 10:42] LABS: MEAN CELL VOLUME 98 fl (80.0-100.0); MEAN CORPUSCULAR HGB CONC 32 g/dl (33.0-37.0); MEAN PLATELET VOLUME 10.3 fl (7.4-10.4); PLATELET COUNT 112 K/mm3 (130-400); RED BLOOD COUNT 2.94 M/mm3 (4.20-5.60); REDCELL DISTRIBUTION WIDTH-CV 24.1 % (11.5-14.5)
[2020-04-12 10:45] LABS: ALBUMIN 4.1 gm/dL (3.5-5.0); BILIRUBIN,TOTAL 0.5 mg/dL (0.0-1.0); CALCIUM 9.2 mg/dL (8.4-10.2); CREATININE, serum 0.94 (0.66-1.25); POTASSIUM 4.3 mmol/L (3.4-5.0); TOTAL PROTEIN 7.3 gm/dL (6.4-8.2)
[2020-04-12 10:49] VITALS: BP 110/58; PULSE 58; TEMP 98
[2020-04-12 10:59] LABS: HEMATOCRIT 28.8 % (42.0-52.0); HEMOGLOBIN 9.1 g/dl (13.5-18.0); MEAN CORPUSCULAR HEMOGLOBIN 31 pg (27.0-31.0)
[2020-04-12 12:24] LABS: BAND 7 % (0-10); EOSINOPHIL 1 % (0-4); LYMPHOCYTE 22 % (20.0-51.0); METAMYELOCYTE 1 % (0-0); NEUTROPHILS 66 % (42.0-75.2); PLATELET ESTIMATE DECREASED (NORMAL); POLYCHROMASIA 1+; SCHISTOCYTES 3+
[2020-04-12 12:25] LABS: OVALOCYTES 1+
[2020-04-15 11:01] LABS: HEMOGLOBIN 10.5 g/dl (13.5-18.0); MEAN CELL VOLUME 100 fl (80.0-100.0); MEAN CORPUSCULAR HEMOGLOBIN 32 pg (27.0-31.0); MEAN CORPUSCULAR HGB CONC 32 g/dl (33.0-37.0); MEAN PLATELET VOLUME 9.5 fl (7.4-10.4); PLATELET COUNT 140 K/mm3 (130-400); RED BLOOD COUNT 3.28 M/mm3 (4.20-5.60); REDCELL DISTRIBUTION WIDTH-CV 25.2 % (11.5-14.5)
[2020-04-15 11:02] LABS: ALBUMIN 4.2 gm/dL (3.5-5.0); BILIRUBIN,TOTAL 0.5 mg/dL (0.0-1.0); CALCIUM 9.3 mg/dL (8.4-10.2); CREATININE, serum 0.92 (0.66-1.25); HEMATOCRIT 32.7 % (42.0-52.0); POTASSIUM 4.2 mmol/L (3.4-5.0); TOTAL PROTEIN 7.5 gm/dL (6.4-8.2)
[2020-04-15 12:07] LABS: BAND 1 % (0-10); LYMPHOCYTE 19 % (20.0-51.0); METAMYELOCYTE 2 % (0-0); NEUTROPHILS 76 % (42.0-75.2)
[2020-04-15 12:08] LABS: PLATELET ESTIMATE DECREASED (NORMAL)
[2020-04-15 12:10] LABS: OVALOCYTES 1+; SCHISTOCYTES 2+
[2020-04-15 12:11] LABS: POLYCHROMASIA 2+
--- NOTE | 2020-04-19 10:00 | NUR ---
here for cares. With sterile technique right upper arm PICC dressing change done with insertion site cleansed with ChloraPrep 1, chlorhexidine impregnated disc applied, skin prep, StatLock, and Tegaderm applied. No signs or symptoms of IV complications noted. No concerns voiced. Arm wrapped with Goldy to protect catheter. Patient to return as scheduled for cares. Patient voiced understanding of instructions.
[2020-04-19 10:15] LABS: HEMOGLOBIN 10.7 g/dl (13.5-18.0); MEAN CELL VOLUME 101 fl (80.0-100.0); MEAN CORPUSCULAR HEMOGLOBIN 32 pg (27.0-31.0); MEAN CORPUSCULAR HGB CONC 32 g/dl (33.0-37.0); MEAN PLATELET VOLUME 9.4 fl (7.4-10.4); PLATELET COUNT 135 K/mm3 (130-400); RED BLOOD COUNT 3.34 M/mm3 (4.20-5.60); REDCELL DISTRIBUTION WIDTH-CV 25.7 % (11.5-14.5)
[2020-04-19 10:23] LABS: ALBUMIN 4.2 gm/dL (3.5-5.0); BILIRUBIN,TOTAL 0.6 mg/dL (0.0-1.0); CALCIUM 9.4 mg/dL (8.4-10.2); CREATININE, serum 0.9 (0.66-1.25); POTASSIUM 3.6 mmol/L (3.4-5.0); TOTAL PROTEIN 7.4 gm/dL (6.4-8.2)
[2020-04-19 10:31] LABS: HEMATOCRIT 33.8 % (42.0-52.0)
[2020-04-19 11:40] VITALS: BP 124/87; PULSE 66; TEMP 97.9
[2020-04-19 12:10] LABS: ANISOCYTOSIS 3+; BAND 2 % (0-10); EOSINOPHIL 3 % (0-4); LYMPHOCYTE 21 % (20.0-51.0); NEUTROPHILS 65 % (42.0-75.2); PLATELET ESTIMATE NORMAL (NORMAL)
[2020-04-22 10:28] VITALS: BP 114/77; PULSE 90; TEMP 98.5
[2020-04-22 10:37] LABS: HEMOGLOBIN 10.1 g/dl (13.5-18.0); MEAN CELL VOLUME 104 fl (80.0-100.0); MEAN CORPUSCULAR HEMOGLOBIN 33 pg (27.0-31.0); MEAN CORPUSCULAR HGB CONC 32 g/dl (33.0-37.0); MEAN PLATELET VOLUME 9.6 fl (7.4-10.4); PLATELET COUNT 137 K/mm3 (130-400); RED BLOOD COUNT 3.04 M/mm3 (4.20-5.60); REDCELL DISTRIBUTION WIDTH-CV 25.6 % (11.5-14.5)
[2020-04-22 10:39] LABS: HEMATOCRIT 31.5 % (42.0-52.0)
[2020-04-22 10:45] LABS: ALBUMIN 3.9 gm/dL (3.5-5.0); BILIRUBIN,TOTAL 0.3 mg/dL (0.0-1.0); CALCIUM 9.3 mg/dL (8.4-10.2); CREATININE, serum 0.91 (0.66-1.25); POTASSIUM 4.3 mmol/L (3.4-5.0); TOTAL PROTEIN 6.9 gm/dL (6.4-8.2)
[2020-04-22 10:55] LABS: BAND 1 % (0-10); LYMPHOCYTE 25 % (20.0-51.0); NEUTROPHILS 68 % (42.0-75.2); PLATELET ESTIMATE DECREASED (NORMAL)
[2020-04-22 10:56] LABS: ANISOCYTOSIS 1+
--- NOTE | 2020-04-24 08:55 | NUR ---
DOCUMENTATION FOR 04/15/2020. NO CHANGES WITH PT'S CLINICAL HISTORY UPPER RIGHT ARM, CAPS WERE CHANGED FLUSH OF IMPLANTED VENOUS ACCESS (picc) WAS PERFORMED WITH 4-10ML FLUSHES PTS PJ=836/70 TEMP=98.0 HR=90 RR=18 O2=94%
[2020-04-26 10:20] LABS: HEMOGLOBIN 11.7 g/dl (13.5-18.0); MEAN CELL VOLUME 102 fl (80.0-100.0); MEAN CORPUSCULAR HEMOGLOBIN 33 pg (27.0-31.0); MEAN CORPUSCULAR HGB CONC 32 g/dl (33.0-37.0); MEAN PLATELET VOLUME 9.2 fl (7.4-10.4); PLATELET COUNT 130 K/mm3 (130-400); RED BLOOD COUNT 3.57 M/mm3 (4.20-5.60); REDCELL DISTRIBUTION WIDTH-CV 25.2 % (11.5-14.5)
[2020-04-26 10:23] VITALS: BP 123/80; PULSE 71; TEMP 97.9
[2020-04-26 10:23] LABS: HEMATOCRIT 36.3 % (42.0-52.0)
--- NOTE | 2020-04-26 10:30 | NUR ---
here for cares. With sterile technique right upper arm PICC dressing change done with insertion site cleansed with ChloraPrep 1, chlorhexidine impregnated disc applied, skin prep, StatLock, and Tegaderm applied. No signs or symptoms of IV complications noted. No concerns voiced. Arm wrapped with Glody to protect catheter. Patient to continue with cares and express unit as scheduled. Patient voiced understanding of instructions.
[2020-04-26 10:38] LABS: ALBUMIN 4.2 gm/dL (3.5-5.0); BILIRUBIN,TOTAL 0.8 mg/dL (0.0-1.0); CALCIUM 9.5 mg/dL (8.4-10.2); CREATININE, serum 0.9 (0.66-1.25); POTASSIUM 3.8 mmol/L (3.4-5.0); TOTAL PROTEIN 7.5 gm/dL (6.4-8.2)
[2020-04-26 11:28] LABS: LYMPHOCYTE 21 % (20.0-51.0); NEUTROPHILS 75 % (42.0-75.2); PLATELET ESTIMATE NORMAL (NORMAL)
[2020-04-26 11:29] LABS: HYPOCHROMIA 1+
[2020-04-29 10:28] LABS: HEMATOCRIT 37.4 % (42.0-52.0); HEMOGLOBIN 12.2 g/dl (13.5-18.0); MEAN CELL VOLUME 104 fl (80.0-100.0); MEAN CORPUSCULAR HEMOGLOBIN 34 pg (27.0-31.0); MEAN CORPUSCULAR HGB CONC 33 g/dl (33.0-37.0); MEAN PLATELET VOLUME 10.6 fl (7.4-10.4); PLATELET COUNT 150 K/mm3 (130-400); RED BLOOD COUNT 3.61 M/mm3 (4.20-5.60); REDCELL DISTRIBUTION WIDTH-CV 23.9 % (11.5-14.5)
[2020-04-29 10:45] LABS: ALBUMIN 4.4 gm/dL (3.5-5.0); BILIRUBIN,TOTAL 0.4 mg/dL (0.0-1.0); CALCIUM 9.4 mg/dL (8.4-10.2); CREATININE, serum 0.98 (0.66-1.25); POTASSIUM 4.3 mmol/L (3.4-5.0); TOTAL PROTEIN 7.8 gm/dL (6.4-8.2)
[2020-04-29 10:50] VITALS: BP 122/75; PULSE 76; TEMP 98.4
[2020-04-29 11:05] LABS: ANISOCYTOSIS 2+; LYMPHOCYTE 14 % (20.0-51.0); NEUTROPHILS 83 % (42.0-75.2); PLATELET ESTIMATE NORMAL (NORMAL)
--- NOTE | 2020-05-03 10:00 | NUR ---
here for cares. With sterile technique right upper arm PICC dressing change done with insertion site cleansed with ChloraPrep 1, chlorhexidine impregnated disc applied, skin prep, StatLock, and Tegaderm applied. No signs or symptoms of IV complications noted. No concerns voiced. Arm wrapped with Goldy to protect catheter. Patient return to express unit as scheduled. Patient voiced understanding of instructions.
[2020-05-03 10:10] VITALS: BP 131/79; PULSE 68; TEMP 98.3
[2020-05-03 10:41] LABS: HEMATOCRIT 40.6 % (42.0-52.0); HEMOGLOBIN 13.3 g/dl (13.5-18.0); MEAN CELL VOLUME 102 fl (80.0-100.0); MEAN CORPUSCULAR HEMOGLOBIN 33 pg (27.0-31.0); MEAN CORPUSCULAR HGB CONC 33 g/dl (33.0-37.0); PLATELET COUNT 143 K/mm3 (130-400); RED BLOOD COUNT 3.98 M/mm3 (4.20-5.60); REDCELL DISTRIBUTION WIDTH-CV 22.5 % (11.5-14.5)
[2020-05-03 10:45] LABS: ALBUMIN 4.4 gm/dL (3.5-5.0); BILIRUBIN,TOTAL 1.1 mg/dL (0.0-1.0); CALCIUM 9.4 mg/dL (8.4-10.2); CREATININE, serum 0.91 (0.66-1.25); MAGNESIUM 2.1 mg/dL (1.6-2.3); POTASSIUM 3.6 mmol/L (3.4-5.0); TOTAL PROTEIN 7.9 gm/dL (6.4-8.2)
[2020-05-03 11:17] LABS: ANISOCYTOSIS 2+; BAND 1 % (0-10); LYMPHOCYTE 21 % (20.0-51.0); NEUTROPHILS 73 % (42.0-75.2); PLATELET ESTIMATE NORMAL (NORMAL)
[2020-05-03 11:18] LABS: SCHISTOCYTES 1+
[2020-05-06 10:30] VITALS: BP 146/80; PULSE 60; TEMP 98
--- NOTE | 2020-05-06 10:31 | NUR ---
Requested pt to bring updated copy of medication list for review on sunday.
[2020-05-06 10:35] LABS: MEAN CELL VOLUME 103 fl (80.0-100.0); MEAN CORPUSCULAR HEMOGLOBIN 34 pg (27.0-31.0); MEAN CORPUSCULAR HGB CONC 33 g/dl (33.0-37.0); MEAN PLATELET VOLUME 9.3 fl (7.4-10.4); PLATELET COUNT 149 K/mm3 (130-400); RED BLOOD COUNT 3.88 M/mm3 (4.20-5.60); REDCELL DISTRIBUTION WIDTH-CV 21.6 % (11.5-14.5)
[2020-05-06 11:16] LABS: ANISOCYTOSIS 2+; HYPOCHROMIA 1+; LYMPHOCYTE 3 % (20.0-51.0); NEUTROPHILS 91 % (42.0-75.2); PLATELET ESTIMATE NORMAL (NORMAL)
--- NOTE | 2020-05-10 10:15 | NUR ---
Here for cares. with sterile technique right upper arm PICC intact with sterile dressing change done with insertion site cleansed with chloraprep x 1, chlorhexidine impregnated disk applied, skin prep, stat lock, and tegaderm applied. no signs or symptoms of IV complications noted. no concerns voiced. to continue with cares in EU as scheduled. voiced understanding of instructions.
[2020-05-10 10:33] LABS: HEMATOCRIT 40.3 % (42.0-52.0); HEMOGLOBIN 13.5 g/dl (13.5-18.0); MEAN CELL VOLUME 102 fl (80.0-100.0); MEAN CORPUSCULAR HEMOGLOBIN 34 pg (27.0-31.0); MEAN CORPUSCULAR HGB CONC 34 g/dl (33.0-37.0); MEAN PLATELET VOLUME 9.4 fl (7.4-10.4); PLATELET COUNT 126 K/mm3 (130-400); RED BLOOD COUNT 3.95 M/mm3 (4.20-5.60); REDCELL DISTRIBUTION WIDTH-CV 20.8 % (11.5-14.5)
[2020-05-10 10:36] VITALS: BP 119/87; PULSE 76; TEMP 98.4
[2020-05-10 10:49] LABS: BILIRUBIN,TOTAL 0.7 mg/dL (0.0-1.0); CALCIUM 9.6 mg/dL (8.4-10.2); CREATININE, serum 0.87 (0.66-1.25); POTASSIUM 4.1 mmol/L (3.4-5.0); TOTAL PROTEIN 7.2 gm/dL (6.4-8.2)
[2020-05-10 11:20] LABS: BAND 1 % (0-10); EOSINOPHIL 1 % (0-4); LYMPHOCYTE 17 % (20.0-51.0); NEUTROPHILS 74 % (42.0-75.2)
[2020-05-10 11:21] LABS: ANISOCYTOSIS 2+; PLATELET ESTIMATE DECREASED (NORMAL)
[2020-05-10 11:22] LABS: OVALOCYTES 1+; SCHISTOCYTES 1+; TEAR DROP CELLS 1+
[2020-05-13 09:28] VITALS: BP 129/98; PULSE 84; TEMP 98.1
[2020-05-13 09:29] LABS: HEMATOCRIT 40.5 % (42.0-52.0); HEMOGLOBIN 13.4 g/dl (13.5-18.0); MEAN CELL VOLUME 104 fl (80.0-100.0); MEAN CORPUSCULAR HEMOGLOBIN 35 pg (27.0-31.0); MEAN CORPUSCULAR HGB CONC 33 g/dl (33.0-37.0); PLATELET COUNT 88 K/mm3 (130-400); RED BLOOD COUNT 3.88 M/mm3 (4.20-5.60); REDCELL DISTRIBUTION WIDTH-CV 21.2 % (11.5-14.5)
[2020-05-13 09:53] LABS: ALBUMIN 4.3 gm/dL (3.5-5.0); BILIRUBIN,TOTAL 0.6 mg/dL (0.0-1.0); CALCIUM 9.4 mg/dL (8.4-10.2); CREATININE, serum 0.96 (0.66-1.25); POTASSIUM 4.7 mmol/L (3.4-5.0); TOTAL PROTEIN 7.6 gm/dL (6.4-8.2)
[2020-05-13 10:37] LABS: LYMPHOCYTE 24 % (20.0-51.0); NEUTROPHILS 68 % (42.0-75.2)
[2020-05-13 10:38] LABS: ANISOCYTOSIS 3+; MICROCYTOSIS 2+; PLATELET ESTIMATE DECREASED (NORMAL)
[2020-05-13 10:40] LABS: POIKILOCYTOSIS 2+
[2020-05-17 10:00] VITALS: BP 121/77; PULSE 86; TEMP 98.4
--- NOTE | 2020-05-17 10:15 | NUR ---
here for cares. With sterile technique right upper arm PICC dressing change done with insertion site cleansed with ChloraPrep 1, chlorhexidine impregnated disc applied, skin prep, StatLock, and Tegaderm applied. No signs or symptoms of IV complications noted. No concerns voiced. Arm wrapped with Goldy to protect catheter. Patient to return to express unit as scheduled. Patient voiced understanding of instructions.
[2020-05-17 11:18] LABS: ALBUMIN 3.9 gm/dL (3.5-5.0); BILIRUBIN,TOTAL 0.8 mg/dL (0.0-1.0); CALCIUM 9.4 mg/dL (8.4-10.2); CREATININE, serum 0.89 (0.66-1.25); POTASSIUM 4.1 mmol/L (3.4-5.0)
[2020-05-17 11:19] LABS: HEMATOCRIT 37.1 % (42.0-52.0); HEMOGLOBIN 12.3 g/dl (13.5-18.0); MEAN CELL VOLUME 105 fl (80.0-100.0); MEAN CORPUSCULAR HEMOGLOBIN 35 pg (27.0-31.0); MEAN CORPUSCULAR HGB CONC 33 g/dl (33.0-37.0); PLATELET COUNT 50 K/mm3 (130-400); RED BLOOD COUNT 3.53 M/mm3 (4.20-5.60); REDCELL DISTRIBUTION WIDTH-CV 20.2 % (11.5-14.5)
[2020-05-17 12:26] LABS: BAND 2 % (0-10); NEUTROPHILS 60 % (42.0-75.2)
[2020-05-17 12:29] LABS: LYMPHOCYTE 31 % (20.0-51.0); PLATELET ESTIMATE DECREASED (NORMAL)
[2020-05-17 12:31] LABS: ANISOCYTOSIS 2+
[2020-05-17 12:39] LABS: SCHISTOCYTES 1+
[2020-05-18 08:33] LABS: PATHOLOGY DIFF REVIEW OK
[2020-05-20 10:27] LABS: HEMATOCRIT 37.7 % (42.0-52.0); HEMOGLOBIN 12.5 g/dl (13.5-18.0); MEAN CELL VOLUME 104 fl (80.0-100.0); MEAN CORPUSCULAR HEMOGLOBIN 35 pg (27.0-31.0); MEAN CORPUSCULAR HGB CONC 33 g/dl (33.0-37.0); RED BLOOD COUNT 3.62 M/mm3 (4.20-5.60); REDCELL DISTRIBUTION WIDTH-CV 19.4 % (11.5-14.5)
[2020-05-20 10:30] VITALS: BP 111/73; PULSE 53; TEMP 97.8
[2020-05-20 10:30] LABS: PLATELET COUNT 47 K/mm3 (130-400)
[2020-05-20 11:27] LABS: ANISOCYTOSIS 2+; EOSINOPHIL 3 % (0-4); LYMPHOCYTE 34 % (20.0-51.0); NEUTROPHILS 54 % (42.0-75.2)
[2020-05-20 11:28] LABS: OVALOCYTES 1+; PLATELET ESTIMATE DECREASED (NORMAL); TEAR DROP CELLS 1+
--- NOTE | 2020-05-24 09:45 | NUR ---
Here for cares. with sterile technique right upper arm PICC dressing change done with insertion site cleansed with chloraprep x 1, chlorhexidine impregnated disk applied, skin prep, stat lock, and tegaderm applied. no signs or symptoms of IV complications noted. no concerns voiced. to continue with cares in EU. voiced understanding of instructions.
[2020-05-24 10:05] LABS: HEMATOCRIT 39.4 % (42.0-52.0); HEMOGLOBIN 13.1 g/dl (13.5-18.0); MEAN CELL VOLUME 105 fl (80.0-100.0); MEAN CORPUSCULAR HEMOGLOBIN 35 pg (27.0-31.0); MEAN CORPUSCULAR HGB CONC 33 g/dl (33.0-37.0); PLATELET COUNT 66 K/mm3 (130-400); RED BLOOD COUNT 3.77 M/mm3 (4.20-5.60); REDCELL DISTRIBUTION WIDTH-CV 18.7 % (11.5-14.5)
[2020-05-24 10:13] LABS: ALBUMIN 4.2 gm/dL (3.5-5.0); BILIRUBIN,TOTAL 0.5 mg/dL (0.0-1.0); CALCIUM 9.3 mg/dL (8.4-10.2); CREATININE, serum 0.92 (0.66-1.25); POTASSIUM 4.1 mmol/L (3.4-5.0); TOTAL PROTEIN 7.4 gm/dL (6.4-8.2)
[2020-05-24 11:19] VITALS: BP 122/84; PULSE 56; TEMP 98.3
[2020-05-24 11:48] LABS: ANISOCYTOSIS 1+; BAND 1 % (0-10); EOSINOPHIL 1 % (0-4); NEUTROPHILS 32 % (42.0-75.2); OVALOCYTES 1+; PLATELET ESTIMATE DECREASED (NORMAL)
[2020-05-24 11:55] LABS: LYMPHOCYTE 62 % (20.0-51.0)
[2020-05-27 09:54] VITALS: BP 117/93; PULSE 70; TEMP 98.3
[2020-05-27 10:10] LABS: HEMATOCRIT 40.4 % (42.0-52.0); HEMOGLOBIN 13.6 g/dl (13.5-18.0); MEAN CELL VOLUME 105 fl (80.0-100.0); MEAN CORPUSCULAR HEMOGLOBIN 35 pg (27.0-31.0); MEAN CORPUSCULAR HGB CONC 34 g/dl (33.0-37.0); MEAN PLATELET VOLUME 8.5 fl (7.4-10.4); PLATELET COUNT 96 K/mm3 (130-400); RED BLOOD COUNT 3.86 M/mm3 (4.20-5.60); REDCELL DISTRIBUTION WIDTH-CV 18.5 % (11.5-14.5)
[2020-05-27 12:37] LABS: BAND 4 % (0-10); BASOPHIL 1 % (0-2); METAMYELOCYTE 2 % (0-0); NEUTROPHILS 22 % (42.0-75.2)
[2020-05-27 12:38] LABS: ANISOCYTOSIS 1+; PLATELET ESTIMATE DECREASED (NORMAL)
[2020-05-27 12:39] LABS: SCHISTOCYTES 1+
[2020-05-27 13:16] LABS: LYMPHOCYTE 68 % (20.0-51.0)
[2020-05-31 10:30] VITALS: BP 114/79; PULSE 58; TEMP 98.5
--- NOTE | 2020-05-31 10:40 | NUR ---
Here for cares. with sterile technique right upper arm PICC dressing change done with insertion site cleansed with chloraprep x 1, chlorhexidine impregnated disk applied, skin prep, stat lock, and tegaderm applied. no signs or symptoms of IV complications noted. no concerns voiced. re-wrapped with christie to protect catheter. to return as scheduled in EU. voiced understanding of instructions.
[2020-05-31 10:46] LABS: HEMATOCRIT 41.3 % (42.0-52.0); MEAN CELL VOLUME 104 fl (80.0-100.0); MEAN CORPUSCULAR HEMOGLOBIN 35 pg (27.0-31.0); MEAN CORPUSCULAR HGB CONC 34 g/dl (33.0-37.0); MEAN PLATELET VOLUME 8.8 fl (7.4-10.4); PLATELET COUNT 103 K/mm3 (130-400); RED BLOOD COUNT 3.97 M/mm3 (4.20-5.60); REDCELL DISTRIBUTION WIDTH-CV 17.2 % (11.5-14.5)
[2020-05-31 10:56] LABS: ALBUMIN 4.2 gm/dL (3.5-5.0); BILIRUBIN,TOTAL 0.7 mg/dL (0.0-1.0); CALCIUM 9.4 mg/dL (8.4-10.2); CREATININE, serum 0.93 (0.66-1.25); MAGNESIUM 2.1 mg/dL (1.6-2.3); POTASSIUM 4.1 mmol/L (3.4-5.0); TOTAL PROTEIN 7.5 gm/dL (6.4-8.2)
[2020-05-31 11:57] LABS: EOSINOPHIL 1 % (0-4); NEUTROPHILS 25 % (42.0-75.2); PLATELET ESTIMATE DECREASED (NORMAL)
[2020-05-31 11:58] LABS: LYMPHOCYTE 70 % (20.0-51.0)
[2020-06-03 10:45] VITALS: BP 121/77; PULSE 53; TEMP 97.9
[2020-06-03 10:46] LABS: HEMATOCRIT 40.6 % (42.0-52.0); HEMOGLOBIN 13.9 g/dl (13.5-18.0); MEAN CELL VOLUME 104 fl (80.0-100.0); MEAN CORPUSCULAR HEMOGLOBIN 36 pg (27.0-31.0); MEAN CORPUSCULAR HGB CONC 34 g/dl (33.0-37.0); MEAN PLATELET VOLUME 8.9 fl (7.4-10.4); PLATELET COUNT 79 K/mm3 (130-400); RED BLOOD COUNT 3.92 M/mm3 (4.20-5.60); REDCELL DISTRIBUTION WIDTH-CV 16.7 % (11.5-14.5)
[2020-06-03 11:38] LABS: BAND 4 % (0-10); LYMPHOCYTE 45 % (20.0-51.0); NEUTROPHILS 44 % (42.0-75.2); PLATELET ESTIMATE NORMAL (NORMAL)
--- NOTE | 2020-06-07 10:45 | NUR ---
here for cares. With sterile technique right upper arm PICC dressing change done with insertion site cleansed with ChloraPrep 1, chlorhexidine impregnated disc applied, skin prep, StatLock, and Tegaderm applied. No signs or symptoms of IV complications noted. No concerns voiced. Patient to return to express and is scheduled for cares. Patient voiced understanding of instructions.
[2020-06-07 11:10] LABS: HEMATOCRIT 39.5 % (42.0-52.0); HEMOGLOBIN 13.4 g/dl (13.5-18.0); MEAN CELL VOLUME 104 fl (80.0-100.0); MEAN CORPUSCULAR HEMOGLOBIN 35 pg (27.0-31.0); MEAN CORPUSCULAR HGB CONC 34 g/dl (33.0-37.0); RED BLOOD COUNT 3.79 M/mm3 (4.20-5.60); REDCELL DISTRIBUTION WIDTH-CV 16.2 % (11.5-14.5)
[2020-06-07 11:13] LABS: PLATELET COUNT 38 K/mm3 (130-400)
[2020-06-07 11:34] LABS: ALBUMIN 4.1 gm/dL (3.5-5.0); BILIRUBIN,TOTAL 0.6 mg/dL (0.0-1.0); CALCIUM 9.2 mg/dL (8.4-10.2); CREATININE, serum 0.9 (0.66-1.25); POTASSIUM 4.3 mmol/L (3.4-5.0); TOTAL PROTEIN 7.3 gm/dL (6.4-8.2)
[2020-06-07 12:57] VITALS: BP 118/77; PULSE 48; TEMP 97.7
[2020-06-07 13:15] LABS: ANISOCYTOSIS 1+; BASOPHIL 1 % (0-2); LYMPHOCYTE 44 % (20.0-51.0); MICROCYTOSIS 1+; NEUTROPHILS 49 % (42.0-75.2); PLATELET ESTIMATE DECREASED (NORMAL)
[2020-06-10 10:23] LABS: HEMATOCRIT 39.7 % (42.0-52.0); HEMOGLOBIN 13.7 g/dl (13.5-18.0); MEAN CELL VOLUME 103 fl (80.0-100.0); MEAN CORPUSCULAR HEMOGLOBIN 35 pg (27.0-31.0); MEAN CORPUSCULAR HGB CONC 35 g/dl (33.0-37.0); RED BLOOD COUNT 3.87 M/mm3 (4.20-5.60); REDCELL DISTRIBUTION WIDTH-CV 15.1 % (11.5-14.5)
[2020-06-10 10:50] VITALS: BP 105/73; PULSE 50; TEMP 97.9
[2020-06-10 10:50] LABS: BAND 2 % (0-10); LYMPHOCYTE 55 % (20.0-51.0); NEUTROPHILS 40 % (42.0-75.2); PLATELET ESTIMATE DECREASED (NORMAL); TEAR DROP CELLS 1+
[2020-06-10 10:53] LABS: PLATELET COUNT 24 K/mm3 (130-400)
[2020-06-14 08:29] VITALS: BP 129/82; PULSE 46; TEMP 97.8
--- NOTE | 2020-06-14 08:30 | NUR ---
Here for cares. with sterile technique right upper arm PICC dressing change done with insertion site cleansed with chloraprep x 1, chlorhexidine impregnated disk applied, skin prep, stat lock, and tegaderm applied. no signs or symptoms of IV complications noted. no concerns voiced. re-wrapped with christie to protect catheter.
[2020-06-14 08:53] LABS: HEMATOCRIT 38.7 % (42.0-52.0); HEMOGLOBIN 13.5 g/dl (13.5-18.0); MEAN CELL VOLUME 102 fl (80.0-100.0); MEAN CORPUSCULAR HEMOGLOBIN 36 pg (27.0-31.0); MEAN CORPUSCULAR HGB CONC 35 g/dl (33.0-37.0); RED BLOOD COUNT 3.79 M/mm3 (4.20-5.60); REDCELL DISTRIBUTION WIDTH-CV 15.1 % (11.5-14.5)
[2020-06-14 09:01] LABS: ALBUMIN 4.2 gm/dL (3.5-5.0); BILIRUBIN,TOTAL 0.7 mg/dL (0.0-1.0); CALCIUM 9.2 mg/dL (8.4-10.2); CREATININE, serum 0.9 (0.66-1.25); MAGNESIUM 2.3 mg/dL (1.6-2.3); POTASSIUM 3.5 mmol/L (3.4-5.0); TOTAL PROTEIN 7.4 gm/dL (6.4-8.2)
[2020-06-14 09:04] LABS: PLATELET COUNT 17 K/mm3 (130-400)
[2020-06-14 09:47] LABS: BAND 2 % (0-10); LYMPHOCYTE 52 % (20.0-51.0); NEUTROPHILS 42 % (42.0-75.2); PLATELET ESTIMATE DECREASED (NORMAL)
[2020-06-14 09:49] LABS: TEAR DROP CELLS 1+
[2020-06-15 14:07] VITALS: BP 118/88; PULSE 83; TEMP 98.1
[2020-06-15 14:22] VITALS: BP 131/84; PULSE 55; TEMP 98
[2020-06-15 14:52] VITALS: BP 115/74; PULSE 57; TEMP 98
[2020-06-15 15:22] VITALS: BP 112/72; PULSE 52; TEMP 98
[2020-06-17 10:30] VITALS: BP 115/74; PULSE 61; TEMP 98.5
[2020-06-17 10:58] LABS: HEMOGLOBIN 12.8 g/dl (13.5-18.0); MEAN CELL VOLUME 102 fl (80.0-100.0); MEAN CORPUSCULAR HEMOGLOBIN 35 pg (27.0-31.0); MEAN CORPUSCULAR HGB CONC 35 g/dl (33.0-37.0); RED BLOOD COUNT 3.62 M/mm3 (4.20-5.60); REDCELL DISTRIBUTION WIDTH-CV 14.6 % (11.5-14.5)
[2020-06-17 11:00] LABS: PLATELET COUNT 31 K/mm3 (130-400)
[2020-06-17 11:26] LABS: BAND 2 % (0-10); LYMPHOCYTE 60 % (20.0-51.0); NEUTROPHILS 35 % (42.0-75.2); PLATELET ESTIMATE DECREASED (NORMAL)
[2020-06-17 11:27] LABS: TEAR DROP CELLS 1+
[2020-06-21 09:48] VITALS: BP 118/85; PULSE 51; TEMP 98.1
--- NOTE | 2020-06-21 10:00 | NUR ---
here for cares. With sterile technique right upper arm PICC dressing change done with insertion site cleansed with ChloraPrep 1, chlorhexidine impregnated disc applied, skin prep, StatLock, and Tegaderm applied. No signs or symptoms of IV complications noted. No concerns voiced. Patient to return as scheduled for cares in the express unit. Patient voiced understanding of instructions.
[2020-06-21 10:03] LABS: HEMATOCRIT 37.3 % (42.0-52.0); HEMOGLOBIN 12.6 g/dl (13.5-18.0); MEAN CELL VOLUME 103 fl (80.0-100.0); MEAN CORPUSCULAR HEMOGLOBIN 35 pg (27.0-31.0); MEAN CORPUSCULAR HGB CONC 34 g/dl (33.0-37.0); RED BLOOD COUNT 3.64 M/mm3 (4.20-5.60); REDCELL DISTRIBUTION WIDTH-CV 14.6 % (11.5-14.5)
[2020-06-21 10:12] LABS: ALBUMIN 4.1 gm/dL (3.5-5.0); BILIRUBIN,TOTAL 0.4 mg/dL (0.0-1.0); CALCIUM 9.2 mg/dL (8.4-10.2); CREATININE, serum 0.91 (0.66-1.25); TOTAL PROTEIN 7.4 gm/dL (6.4-8.2)
[2020-06-21 10:26] LABS: PLATELET COUNT 21 K/mm3 (130-400)
[2020-06-21 12:25] LABS: BAND 5 % (0-10); LYMPHOCYTE 52 % (20.0-51.0); NEUTROPHILS 36 % (42.0-75.2); PLATELET ESTIMATE DECREASED (NORMAL)
[2020-06-28 10:49] VITALS: BP 117/80; PULSE 74; TEMP 98.2
--- NOTE | 2020-06-28 11:00 | NUR ---
Here for cares. with sterile technique right upper arm PICC dressing change done with insertion site cleansed with chloraprep x 1, chlorhexidine impreganted disk applied, skin prep, stat lock, and tegaderm applied. no signs or symptoms of IV complications noted. no concerns voiced. re-wrapped with christie to protect catheter. to return for cares. voiced understanding of instructions.
[2020-06-28 11:30] LABS: HEMOGLOBIN 12.6 g/dl (13.5-18.0); MEAN CELL VOLUME 103 fl (80.0-100.0); MEAN CORPUSCULAR HEMOGLOBIN 36 pg (27.0-31.0); MEAN CORPUSCULAR HGB CONC 35 g/dl (33.0-37.0); RED BLOOD COUNT 3.55 M/mm3 (4.20-5.60); REDCELL DISTRIBUTION WIDTH-CV 14.4 % (11.5-14.5)
[2020-06-28 11:37] LABS: ALBUMIN 4.2 gm/dL (3.5-5.0); BILIRUBIN,TOTAL 0.4 mg/dL (0.0-1.0); CALCIUM 9.3 mg/dL (8.4-10.2); CREATININE, serum 0.93 (0.66-1.25); POTASSIUM 3.8 mmol/L (3.4-5.0); TOTAL PROTEIN 7.4 gm/dL (6.4-8.2)
[2020-06-28 11:45] LABS: HEMATOCRIT 36.5 % (42.0-52.0)
[2020-06-28 11:46] LABS: PLATELET COUNT 28 K/mm3 (130-400)
[2020-06-28 12:26] LABS: BAND 2 % (0-10); EOSINOPHIL 2 % (0-4); LYMPHOCYTE 52 % (20.0-51.0); METAMYELOCYTE 1 % (0-0); NEUTROPHILS 35 % (42.0-75.2); PLATELET ESTIMATE DECREASED (NORMAL)
[2020-07-01 09:54] VITALS: BP 113/75; PULSE 71; TEMP 98.3
[2020-07-01 10:18] LABS: HEMOGLOBIN 12.3 g/dl (13.5-18.0); MEAN CELL VOLUME 102 fl (80.0-100.0); MEAN CORPUSCULAR HEMOGLOBIN 35 pg (27.0-31.0); MEAN CORPUSCULAR HGB CONC 34 g/dl (33.0-37.0); RED BLOOD COUNT 3.55 M/mm3 (4.20-5.60); REDCELL DISTRIBUTION WIDTH-CV 14.2 % (11.5-14.5)
[2020-07-01 10:20] LABS: HEMATOCRIT 36.2 % (42.0-52.0)
--- NOTE | 2020-07-01 10:20 | NUR ---
PICC intact right upper arm with sterile dressing change done with insertion site cleansed with chloraprep x 1, chlorhexidine impreganted disk applied, skin prep, stat lock, and tegaderm applied. no signs or symptoms of IV complications noted. no concerns voiced. to continue with cares in EU. voiced understanding of instructions.
[2020-07-01 10:22] LABS: PLATELET COUNT 34 K/mm3 (130-400)
[2020-07-01 10:52] LABS: BASOPHIL 1 % (0-2); LYMPHOCYTE 49 % (20.0-51.0); NEUTROPHILS 42 % (42.0-75.2)
[2020-07-01 10:53] LABS: PLATELET ESTIMATE DECREASED (NORMAL)
[2020-07-01 10:57] LABS: POLYCHROMASIA 1+
[~2020-07-05] VITALS: Ht 185.4 cm; Wt 96.3 kg
[2020-07-05 10:00] VITALS: BP 119/79; PULSE 75; TEMP 98.7
[~2020-07-05 10:00] MED LIST changes: +DESYREL 100MG100 MG PO; +PREDNISONE20 MG PO; +TOPROL XL 25MG25 MG PO
--- NOTE | 2020-07-05 10:10 | NUR ---
Here for cares. with sterile technique right upper arm PICC dressing change done with insertion site cleansed with chloraprep x 2, skin prep, stat lock, and tegaderm applied. no signs or symptoms of IV complications noted. no concerns voiced. to continue with cares in EU. voiced understanding of instructions. wrapped with christie to protect catheter.
[2020-07-05 10:36] LABS: HEMOGLOBIN 12.6 g/dl (13.5-18.0); MEAN CELL VOLUME 102 fl (80.0-100.0); MEAN CORPUSCULAR HEMOGLOBIN 35 pg (27.0-31.0); MEAN CORPUSCULAR HGB CONC 34 g/dl (33.0-37.0); RED BLOOD COUNT 3.62 M/mm3 (4.20-5.60); REDCELL DISTRIBUTION WIDTH-CV 14.7 % (11.5-14.5)
[2020-07-05 10:46] LABS: ALBUMIN 4.4 gm/dL (3.5-5.0); BILIRUBIN,TOTAL 0.6 mg/dL (0.0-1.0); CALCIUM 9.1 mg/dL (8.4-10.2); CREATININE, serum 0.97 (0.66-1.25); POTASSIUM 3.8 mmol/L (3.4-5.0); TOTAL PROTEIN 7.7 gm/dL (6.4-8.2)
[2020-07-05 11:03] LABS: PLATELET COUNT 41 K/mm3 (130-400)
[2020-07-05 13:33] LABS: ANISOCYTOSIS 1+; BAND 5 % (0-10); HYPOCHROMIA 1+; LYMPHOCYTE 46 % (20.0-51.0); NEUTROPHILS 42 % (42.0-75.2); PLATELET ESTIMATE DECREASED (NORMAL)
== END 2020-07-06 | disposition home or self-care (01) ==
LOC: EUO
PROVIDERS: Internal Medicine
DX: C92.A0 Acute myeloid leukemia with multilineage dysplasia, not having achieved remission (principal)
CPT/HCPCS: J7050; P9037

== ENCOUNTER 2020-08-09 10:00 | Outpatient (RCR) | payer MEDICARE, MEDICAID ==
--- NOTE | 2020-07-08 10:10 | NUR ---
patient reported pinched feeling at PICC site. With sterile technique right upper arm PICC dressing change done with insertion site cleansed with ChloraPrep 1, chlorhexidine impregnated disc applied, skin prep, StatLock, and Tegaderm applied. Patient reported site feels better now. We'll continue to monitor. To return as scheduled to express unit for cares. wrapped with Goldy to protect catheter. Patient voiced understanding of instructions.
[2020-07-08 10:58] LABS: HEMOGLOBIN 12.2 g/dl (13.5-18.0); MEAN CELL VOLUME 102 fl (80.0-100.0); MEAN CORPUSCULAR HEMOGLOBIN 36 pg (27.0-31.0); MEAN CORPUSCULAR HGB CONC 35 g/dl (33.0-37.0); RED BLOOD COUNT 3.42 M/mm3 (4.20-5.60); REDCELL DISTRIBUTION WIDTH-CV 14.6 % (11.5-14.5)
[2020-07-08 11:04] LABS: HEMATOCRIT 34.9 % (42.0-52.0); PLATELET COUNT 48 K/mm3 (130-400)
[2020-07-08 11:40] VITALS: BP 159/77; PULSE 87; TEMP 97.4
[2020-07-08 11:48] LABS: ANISOCYTOSIS 1+; BAND 1 % (0-10); EOSINOPHIL 3 % (0-4); LYMPHOCYTE 43 % (20.0-51.0); NEUTROPHILS 43 % (42.0-75.2); NUCLEATED RED BLOOD CELL 1 (0-6); OVALOCYTES 1+; PLATELET ESTIMATE DECREASED (NORMAL)
--- NOTE | 2020-07-12 10:15 | NUR ---
here for cares. With sterile technique right upper arm PICC dressing change done with insertion site cleansed with ChloraPrep 1, chlorhexidine impregnated disc applied, skin prep, StatLock, and Tegaderm applied. No signs or symptoms of IV complications noted. No concerns voiced. Arm wrapped with Goldy to protect catheter. Patient to return is scheduled to express unit for cares. Patient voiced understanding of instructions.
[2020-07-12 10:29] VITALS: BP 122/78; PULSE 60; TEMP 98.6
[2020-07-12 10:51] LABS: HEMOGLOBIN 12.3 g/dl (13.5-18.0); MEAN CELL VOLUME 101 fl (80.0-100.0); MEAN CORPUSCULAR HEMOGLOBIN 35 pg (27.0-31.0); MEAN CORPUSCULAR HGB CONC 35 g/dl (33.0-37.0); PLATELET COUNT 51 K/mm3 (130-400); RED BLOOD COUNT 3.52 M/mm3 (4.20-5.60); REDCELL DISTRIBUTION WIDTH-CV 15.2 % (11.5-14.5)
[2020-07-12 10:54] LABS: HEMATOCRIT 35.6 % (42.0-52.0)
[2020-07-12 10:57] LABS: MAGNESIUM 2.1 mg/dL (1.6-2.3)
[2020-07-12 12:01] LABS: BAND 2 % (0-10); LYMPHOCYTE 43 % (20.0-51.0); METAMYELOCYTE 1 % (0-0); NEUTROPHILS 44 % (42.0-75.2); NUCLEATED RED BLOOD CELL 1 (0-6)
[2020-07-12 12:02] LABS: PLATELET ESTIMATE DECREASED (NORMAL)
[2020-07-15 10:09] VITALS: BP 114/73; PULSE 62; TEMP 98.4
[2020-07-15 10:23] LABS: HEMOGLOBIN 12.2 g/dl (13.5-18.0); MEAN CELL VOLUME 102 fl (80.0-100.0); MEAN CORPUSCULAR HEMOGLOBIN 36 pg (27.0-31.0); MEAN CORPUSCULAR HGB CONC 35 g/dl (33.0-37.0); PLATELET COUNT 55 K/mm3 (130-400); RED BLOOD COUNT 3.44 M/mm3 (4.20-5.60)
[2020-07-15 10:27] LABS: ALBUMIN 4.4 gm/dL (3.5-5.0); BILIRUBIN,TOTAL 0.3 mg/dL (0.0-1.0); CREATININE, serum 0.84 (0.66-1.25); POTASSIUM 4.1 mmol/L (3.4-5.0); TOTAL PROTEIN 7.3 gm/dL (6.4-8.2)
[2020-07-15 10:48] LABS: HEMATOCRIT 35.2 % (42.0-52.0)
[2020-07-15 11:31] LABS: BAND 4 % (0-10); BASOPHIL 1 % (0-2); LYMPHOCYTE 38 % (20.0-51.0); METAMYELOCYTE 1 % (0-0); NEUTROPHILS 53 % (42.0-75.2); TEAR DROP CELLS 1+
[2020-07-15 11:32] LABS: PLATELET ESTIMATE DECREASED (NORMAL)
[2020-07-20 10:00] VITALS: BP 116/66; PULSE 57; TEMP 98.1
--- NOTE | 2020-07-20 10:00 | NUR ---
Here for cares. Right upper arm PICC intact with sterile dressing change done with insertion site cleansed with chloraprep x 2, chlorhexidine impregnated disk applied, skin prep, stat lock, and tegaderm applied. no signs or symptoms of IV complications noted. no concerns voiced. re-wrapped with christie to protect catheter. to continue with cares in EU. voiced understanding of instructions.
[2020-07-20 10:28] LABS: ALBUMIN 4.2 gm/dL (3.5-5.0); BILIRUBIN,TOTAL 0.4 mg/dL (0.0-1.0); CALCIUM 9.2 mg/dL (8.4-10.2); CREATININE, serum 0.82 (0.66-1.25); POTASSIUM 3.6 mmol/L (3.4-5.0)
[2020-07-20 11:08] LABS: HEMOGLOBIN 11.9 g/dl (13.5-18.0); MEAN CELL VOLUME 102 fl (80.0-100.0); MEAN CORPUSCULAR HEMOGLOBIN 35 pg (27.0-31.0); MEAN CORPUSCULAR HGB CONC 34 g/dl (33.0-37.0); MEAN PLATELET VOLUME 10.1 fl (7.4-10.4); PLATELET COUNT 69 K/mm3 (130-400); RED BLOOD COUNT 3.38 M/mm3 (4.20-5.60); REDCELL DISTRIBUTION WIDTH-CV 15.9 % (11.5-14.5)
[2020-07-20 11:09] LABS: HEMATOCRIT 34.6 % (42.0-52.0)
[2020-07-20 11:20] LABS: BAND 2 % (0-10); EOSINOPHIL 2 % (0-4); NEUTROPHILS 53 % (42.0-75.2)
[2020-07-20 11:22] LABS: PLATELET ESTIMATE DECREASED (NORMAL)
[2020-07-20 11:25] LABS: ANISOCYTOSIS 1+
[2020-07-20 11:26] LABS: LYMPHOCYTE 37 % (20.0-51.0)
[2020-07-26 10:28] VITALS: BP 112/78; TEMP 97.7
--- NOTE | 2020-07-26 10:30 | NUR ---
Here for cares. PICC intact right upper arm with sterile dressing change done with insertion site cleansed with chloraprep x 2, chlorhexidine impregnated disk applied, skin prep, stat lock, and tegaderm applied. no signs or symptoms of IV complications noted. no concerns voiced. to return as scheduled for cares. voiced understanding of instructions.
[2020-07-26 10:50] LABS: HEMOGLOBIN 12.7 g/dl (13.5-18.0); MEAN CELL VOLUME 104 fl (80.0-100.0); MEAN CORPUSCULAR HEMOGLOBIN 36 pg (27.0-31.0); MEAN CORPUSCULAR HGB CONC 34 g/dl (33.0-37.0); PLATELET COUNT 84 K/mm3 (130-400); RED BLOOD COUNT 3.57 M/mm3 (4.20-5.60); REDCELL DISTRIBUTION WIDTH-CV 16.9 % (11.5-14.5)
[2020-07-26 10:59] LABS: ALBUMIN 4.5 gm/dL (3.5-5.0); BILIRUBIN,TOTAL 0.5 mg/dL (0.0-1.0); CALCIUM 9.1 mg/dL (8.4-10.2); CREATININE, serum 1.11 (0.66-1.25); MAGNESIUM 2.1 mg/dL (1.6-2.3); TOTAL PROTEIN 7.5 gm/dL (6.4-8.2)
[2020-07-26 11:59] LABS: ANISOCYTOSIS 1+; BAND 1 % (0-10); EOSINOPHIL 1 % (0-4); LYMPHOCYTE 35 % (20.0-51.0); NEUTROPHILS 57 % (42.0-75.2); PLATELET ESTIMATE DECREASED (NORMAL)
--- NOTE | 2020-08-02 10:15 | NUR ---
Here for cares. PICC intact right upper arm with sterile dressing change done with insertion site cleansed with chloraprep x 1, chlorheidine impregnated disk applied, skin prep, stat lock, and tegaderm applied. no signs or symptoms of IV complications noted. no concerns voiced. re-wrapped with christie to protect catheter. to return next week for cares. voiced understanding of instructions.
[2020-08-02 10:17] VITALS: BP 142/79; PULSE 73
[2020-08-02 10:42] LABS: HEMOGLOBIN 12.1 g/dl (13.5-18.0); MEAN CELL VOLUME 102 fl (80.0-100.0); MEAN CORPUSCULAR HEMOGLOBIN 36 pg (27.0-31.0); MEAN CORPUSCULAR HGB CONC 35 g/dl (33.0-37.0); MEAN PLATELET VOLUME 8.8 fl (7.4-10.4); PLATELET COUNT 69 K/mm3 (130-400); RED BLOOD COUNT 3.41 M/mm3 (4.20-5.60); REDCELL DISTRIBUTION WIDTH-CV 16.8 % (11.5-14.5)
[2020-08-02 10:48] LABS: BILIRUBIN,TOTAL 0.6 mg/dL (0.0-1.0); CALCIUM 8.8 mg/dL (8.4-10.2); CREATININE, serum 0.95 (0.66-1.25); MAGNESIUM 2.1 mg/dL (1.6-2.3); POTASSIUM 3.8 mmol/L (3.4-5.0); TOTAL PROTEIN 6.6 gm/dL (6.4-8.2)
[2020-08-02 10:52] LABS: HEMATOCRIT 34.9 % (42.0-52.0)
[2020-08-02 11:08] LABS: ANISOCYTOSIS 1+; BAND 1 % (0-10); LYMPHOCYTE 37 % (20.0-51.0); NEUTROPHILS 58 % (42.0-75.2); NUCLEATED RED BLOOD CELL 1 (0-6); PLATELET ESTIMATE DECREASED (NORMAL)
[~2020-08-09] VITALS: Ht 185.4 cm; Wt 99.3 kg
--- NOTE | 2020-08-09 10:30 | NUR ---
here for cares. PICC intact right upper arm. Sterile dressing change done with insertion site cleansed with ChloraPrep 1, chlorhexidine impregnated disc applied, skin prep, StatLock, and Tegaderm applied. No signs or symptoms of IV complications noted. No concerns voiced. Arm wrapped with Goldy to protect catheter. Patient to return as scheduled for cares in the express unit. Patient voiced understanding of instructions.
[2020-08-09 10:35] VITALS: BP 119/75; PULSE 50; TEMP 97.9
[2020-08-09 10:43] LABS: HEMOGLOBIN 11.3 g/dl (13.5-18.0); MEAN CELL VOLUME 104 fl (80.0-100.0); MEAN CORPUSCULAR HEMOGLOBIN 36 pg (27.0-31.0); MEAN CORPUSCULAR HGB CONC 34 g/dl (33.0-37.0); RED BLOOD COUNT 3.17 M/mm3 (4.20-5.60); REDCELL DISTRIBUTION WIDTH-CV 17.8 % (11.5-14.5)
[2020-08-09 10:46] LABS: ALBUMIN 4.3 gm/dL (3.5-5.0); BILIRUBIN,TOTAL 1.3 mg/dL (0.0-1.0); CALCIUM 9.2 mg/dL (8.4-10.2); CREATININE, serum 0.89 (0.66-1.25); POTASSIUM 4.3 mmol/L (3.4-5.0); TOTAL PROTEIN 7.1 gm/dL (6.4-8.2)
[2020-08-09 12:27] LABS: EOSINOPHIL 2 % (0-4); LYMPHOCYTE 39 % (20.0-51.0); NEUTROPHILS 58 % (42.0-75.2); PLATELET ESTIMATE DECREASED (NORMAL)
[2020-08-09 12:28] LABS: ANISOCYTOSIS 3+; POIKILOCYTOSIS 1+; SCHISTOCYTES 1+
[2020-08-09 12:29] LABS: HEMATOCRIT 32.9 % (42.0-52.0)
[2020-08-09 12:30] LABS: PLATELET COUNT 40 K/mm3 (130-400)
== END 2020-08-12 10:59 | disposition home or self-care (01) ==
LOC: EUO 10:00
PROVIDERS: Internal Medicine
DX: C92.00 Acute myeloblastic leukemia, not having achieved remission (principal)

== ENCOUNTER → 2020-09-27 | Outpatient (CLI) | payer MEDICARE, MEDICAID | LOC: COL.RAD 09:32 | DX: K42.9 Umbilical hernia without obstruction or gangrene (principal); K57.30 Diverticulosis of large intestine without perforation or abscess without bleeding; N28.1 Cyst of kidney, acquired; K76.89 Other specified diseases of liver; D73.4 Cyst of spleen; Z98.890 Other specified postprocedural states | CPT/HCPCS: Q9967 ==

== ENCOUNTER 2020-11-08 10:00 | Outpatient (RCR) | payer MEDICARE, MEDICAID ==
[2020-08-16 10:20] VITALS: BP 132/82; PULSE 83; TEMP 98.7
--- NOTE | 2020-08-16 10:30 | NUR ---
here for cares. Right upper arm PICC intact with dressing change done. Insertion site cleansed with ChloraPrep 1, chlorhexidine impregnated disc applied, skin prep, StatLock, and Tegaderm applied. No signs or symptoms of IV complications noted. No concerns voiced. Patient return next week for cares. Patient voiced understanding of instructions.
[2020-08-16 10:44] LABS: MEAN CELL VOLUME 104 fl (80.0-100.0); MEAN CORPUSCULAR HEMOGLOBIN 36 pg (27.0-31.0); MEAN CORPUSCULAR HGB CONC 35 g/dl (33.0-37.0); PLATELET COUNT 61 K/mm3 (130-400); RED BLOOD COUNT 3.04 M/mm3 (4.20-5.60); REDCELL DISTRIBUTION WIDTH-CV 18.5 % (11.5-14.5)
[2020-08-16 10:53] LABS: ALBUMIN 4.3 gm/dL (3.5-5.0); BILIRUBIN,TOTAL 0.6 mg/dL (0.0-1.0); CREATININE, serum 0.88 (0.66-1.25); MAGNESIUM 2.1 mg/dL (1.6-2.3); POTASSIUM 3.9 mmol/L (3.4-5.0); TOTAL PROTEIN 7.2 gm/dL (6.4-8.2)
[2020-08-16 10:56] LABS: HEMATOCRIT 31.7 % (42.0-52.0)
[2020-08-16 11:14] LABS: ANISOCYTOSIS 1+; BAND 4 % (0-10); LYMPHOCYTE 59 % (20.0-51.0); NEUTROPHILS 36 % (42.0-75.2); NUCLEATED RED BLOOD CELL 3 (0-6)
[2020-08-16 11:15] LABS: OVALOCYTES 1+; STOMATOCYTE 1+
[2020-08-23 09:15] VITALS: BP 126/87; PULSE 57; TEMP 97.6
[2020-08-23 09:44] LABS: HEMOGLOBIN 10.9 g/dl (13.5-18.0); MEAN CELL VOLUME 104 fl (80.0-100.0); MEAN CORPUSCULAR HEMOGLOBIN 36 pg (27.0-31.0); MEAN CORPUSCULAR HGB CONC 35 g/dl (33.0-37.0); PLATELET COUNT 82 K/mm3 (130-400); RED BLOOD COUNT 3.01 M/mm3 (4.20-5.60)
[2020-08-23 09:58] LABS: HEMATOCRIT 31.2 % (42.0-52.0)
[2020-08-23 09:59] LABS: ALBUMIN 4.3 gm/dL (3.5-5.0); BILIRUBIN,TOTAL 0.8 mg/dL (0.0-1.0); CALCIUM 8.6 mg/dL (8.4-10.2); CREATININE, serum 0.93 (0.66-1.25); POTASSIUM 4.1 mmol/L (3.4-5.0)
--- NOTE | 2020-08-23 10:30 | NUR ---
here for cares. PICC intact right upper arm. Sterile dressing changes done with insertion site cleansed with ChloraPrep 2, skin prep, StatLock, and Tegaderm applied. No signs or symptoms of IV complications noted. No concerns voiced. Patient to return as scheduled to express unit for cares. Patient voiced understanding of instructions. Arm wrapped with Goldy to protect catheter.
[2020-08-23 10:53] LABS: ANISOCYTOSIS 2+; EOSINOPHIL 2 % (0-4); LYMPHOCYTE 42 % (20.0-51.0); NEUTROPHILS 44 % (42.0-75.2); NUCLEATED RED BLOOD CELL 1 (0-6)
[2020-08-23 10:54] LABS: OVALOCYTES 1+; TEAR DROP CELLS 1+
[2020-08-30 10:17] VITALS: BP 115/66; PULSE 50; TEMP 97.8
--- NOTE | 2020-08-30 10:45 | NUR ---
here for cares. PICC intact right upper arm. Insertion site cleansed with ChloraPrep 1, chlorhexidine impregnated disc applied, skin prep, StatLock, and Tegaderm applied. No signs or symptoms of IV complications noted. No concerns voiced. Arm wrapped with Goldy to protect catheter. Patient to return next week for cares. Patient voiced understanding of instructions.
[2020-08-30 10:47] LABS: HEMOGLOBIN 10.2 g/dl (13.5-18.0); MEAN CELL VOLUME 108 fl (80.0-100.0); MEAN CORPUSCULAR HEMOGLOBIN 37 pg (27.0-31.0); MEAN CORPUSCULAR HGB CONC 34 g/dl (33.0-37.0); PLATELET COUNT 79 K/mm3 (130-400); RED BLOOD COUNT 2.79 M/mm3 (4.20-5.60); REDCELL DISTRIBUTION WIDTH-CV 19.5 % (11.5-14.5)
[2020-08-30 10:53] LABS: ALBUMIN 4.2 gm/dL (3.5-5.0); BILIRUBIN,TOTAL 0.6 mg/dL (0.0-1.0); CREATININE, serum 0.84 (0.66-1.25); MAGNESIUM 2.2 mg/dL (1.6-2.3); POTASSIUM 3.9 mmol/L (3.4-5.0)
[2020-08-30 12:12] LABS: BAND 2 % (0-10); EOSINOPHIL 2 % (0-4); LYMPHOCYTE 54 % (20.0-51.0); NEUTROPHILS 33 % (42.0-75.2)
[2020-08-30 12:14] LABS: ANISOCYTOSIS 1+; PLATELET ESTIMATE DECREASED (NORMAL)
[2020-09-06 09:49] VITALS: BP 123/82; PULSE 65; TEMP 97.6
[2020-09-06 10:05] LABS: HEMOGLOBIN 10.2 g/dl (13.5-18.0); MEAN CELL VOLUME 109 fl (80.0-100.0); MEAN CORPUSCULAR HEMOGLOBIN 38 pg (27.0-31.0); MEAN CORPUSCULAR HGB CONC 35 g/dl (33.0-37.0); PLATELET COUNT 53 K/mm3 (130-400); REDCELL DISTRIBUTION WIDTH-CV 19.1 % (11.5-14.5)
[2020-09-06 10:08] LABS: HEMATOCRIT 29.3 % (42.0-52.0)
--- NOTE | 2020-09-06 10:15 | NUR ---
here for cares. PICC intact right upper arm. Insertion site cleansed with ChloraPrep 1, chlorhexidine impregnated disc applied, skin prep, StatLock, and pale applied. No signs or symptoms of IV complications noted. No concerns voiced. Patient to continue with cares in the express unit is scheduled. Patient voiced understanding of instructions. Wrapped with Goldy to protect catheter.
[2020-09-06 10:21] LABS: ALBUMIN 4.4 gm/dL (3.5-5.0); CREATININE, serum 0.87 (0.66-1.25); MAGNESIUM 2.2 mg/dL (1.6-2.3); TOTAL PROTEIN 7.2 gm/dL (6.4-8.2)
[2020-09-06 11:57] LABS: BAND 5 % (0-10); EOSINOPHIL 2 % (0-4); NEUTROPHILS 31 % (42.0-75.2)
[2020-09-06 11:59] LABS: PLATELET ESTIMATE DECREASED (NORMAL)
[2020-09-06 12:09] LABS: LYMPHOCYTE 55 % (20.0-51.0)
--- NOTE | 2020-09-13 09:00 | NUR ---
Here for cares. sterile PICC dressing change done with insertion site cleansed with chloraprep x 2, skin prep, stat lock, chlorhexidine impregnated disk applied, and tegaderm applied. no signs or symptoms of IV complications noted. no concerns voiced. to continue with cares in [place]. voiced understanding of instructions.
[2020-09-13 09:42] VITALS: BP 120/74; PULSE 78; TEMP 98.5
[2020-09-13 09:42] LABS: MEAN CELL VOLUME 109 fl (80.0-100.0); MEAN CORPUSCULAR HGB CONC 34 g/dl (33.0-37.0); RED BLOOD COUNT 2.64 M/mm3 (4.20-5.60); REDCELL DISTRIBUTION WIDTH-CV 18.6 % (11.5-14.5)
[2020-09-13 09:44] LABS: HEMATOCRIT 28.7 % (42.0-52.0); HEMOGLOBIN 9.8 g/dl (13.5-18.0); MEAN CORPUSCULAR HEMOGLOBIN 37 pg (27.0-31.0)
[2020-09-13 09:45] LABS: ALBUMIN 4.2 gm/dL (3.5-5.0); BILIRUBIN,TOTAL 0.6 mg/dL (0.0-1.0); CALCIUM 8.9 mg/dL (8.4-10.2); CREATININE, serum 0.85 (0.66-1.25); MAGNESIUM 2.1 mg/dL (1.6-2.3); PLATELET COUNT 48 K/mm3 (130-400); POTASSIUM 3.9 mmol/L (3.4-5.0)
[2020-09-13 10:09] LABS: ANISOCYTOSIS 1+; BAND 4 % (0-10); EOSINOPHIL 2 % (0-4); LYMPHOCYTE 56 % (20.0-51.0); NEUTROPHILS 32 % (42.0-75.2); SCHISTOCYTES 1+
[2020-09-20 10:16] LABS: MEAN CELL VOLUME 108 fl (80.0-100.0); MEAN CORPUSCULAR HGB CONC 35 g/dl (33.0-37.0); RED BLOOD COUNT 2.46 M/mm3 (4.20-5.60); REDCELL DISTRIBUTION WIDTH-CV 17.8 % (11.5-14.5)
[2020-09-20 10:20] LABS: BILIRUBIN,TOTAL 0.5 mg/dL (0.0-1.0); CALCIUM 9.2 mg/dL (8.4-10.2); CREATININE, serum 0.81 (0.66-1.25); HEMATOCRIT 26.6 % (42.0-52.0); HEMOGLOBIN 9.3 g/dl (13.5-18.0); MAGNESIUM 1.8 mg/dL (1.6-2.3); MEAN CORPUSCULAR HEMOGLOBIN 38 pg (27.0-31.0); PLATELET COUNT 48 K/mm3 (130-400); TOTAL PROTEIN 6.8 gm/dL (6.4-8.2)
[2020-09-20 10:22] VITALS: BP 135/78; PULSE 56; TEMP 98.3
[2020-09-20 12:51] LABS: BAND 5 % (0-10); EOSINOPHIL 2 % (0-4); LYMPHOCYTE 52 % (20.0-51.0); NEUTROPHILS 39 % (42.0-75.2); OVALOCYTES 1+; PLATELET ESTIMATE DECREASED (NORMAL)
[2020-09-27 10:01] LABS: MEAN CELL VOLUME 107 fl (80.0-100.0); MEAN CORPUSCULAR HGB CONC 35 g/dl (33.0-37.0); PLATELET COUNT 50 K/mm3 (130-400); RED BLOOD COUNT 2.34 M/mm3 (4.20-5.60); REDCELL DISTRIBUTION WIDTH-CV 17.2 % (11.5-14.5)
[2020-09-27 10:05] LABS: HEMATOCRIT 25.1 % (42.0-52.0); HEMOGLOBIN 8.8 g/dl (13.5-18.0); MEAN CORPUSCULAR HEMOGLOBIN 38 pg (27.0-31.0)
[2020-09-27 10:10] VITALS: BP 119/76; PULSE 84; TEMP 98.4
[2020-09-27 10:22] LABS: ALBUMIN 4.2 gm/dL (3.5-5.0); BILIRUBIN,TOTAL 0.4 mg/dL (0.0-1.0); CALCIUM 8.8 mg/dL (8.4-10.2); CREATININE, serum 0.94 (0.66-1.25); MAGNESIUM 2.1 mg/dL (1.6-2.3); POTASSIUM 3.8 mmol/L (3.4-5.0)
[2020-09-27 10:48] LABS: BAND 1 % (0-10); BASOPHIL 2 % (0-2); NEUTROPHILS 34 % (42.0-75.2); PLATELET ESTIMATE DECREASED (NORMAL)
[2020-09-27 10:50] LABS: OVALOCYTES 1+; TEAR DROP CELLS 2+
[2020-09-27 10:56] LABS: LYMPHOCYTE 58 % (20.0-51.0)
[2020-10-04 08:05] VITALS: BP 122/85; PULSE 75; TEMP 98.5
[2020-10-04 08:07] LABS: MEAN CELL VOLUME 106 fl (80.0-100.0); MEAN CORPUSCULAR HGB CONC 36 g/dl (33.0-37.0); RED BLOOD COUNT 2.24 M/mm3 (4.20-5.60); REDCELL DISTRIBUTION WIDTH-CV 16.1 % (11.5-14.5)
[2020-10-04 08:15] LABS: HEMATOCRIT 23.7 % (42.0-52.0); HEMOGLOBIN 8.5 g/dl (13.5-18.0); MEAN CORPUSCULAR HEMOGLOBIN 38 pg (27.0-31.0)
[2020-10-04 08:16] LABS: PLATELET COUNT 41 K/mm3 (130-400)
[2020-10-04 08:26] LABS: ALBUMIN 4.1 gm/dL (3.5-5.0); BILIRUBIN,TOTAL 0.4 mg/dL (0.0-1.0); CALCIUM 8.7 mg/dL (8.4-10.2); MAGNESIUM 2.2 mg/dL (1.6-2.3); TOTAL PROTEIN 6.6 gm/dL (6.4-8.2)
[2020-10-04 08:37] LABS: ANISOCYTOSIS 1+; EOSINOPHIL 1 % (0-4); LYMPHOCYTE 57 % (20.0-51.0); NEUTROPHILS 39 % (42.0-75.2); PLATELET ESTIMATE DECREASED (NORMAL)
--- NOTE | 2020-10-11 10:30 | NUR ---
Here for cares. PICC intact right upper arm with sterile dressing change done with insertion site cleansed with chloraprep x 2, chlorhexidine impregnated disk applied, skin prep, stat lock, and tegaderm applied. no signs or symptoms of IV complications noted. no concerns voiced. re-wrapped with an christie to protect catheter. to return next week for cares. voiced understanding of instructions.
[2020-10-11 10:55] VITALS: BP 113/75; PULSE 67; TEMP 98.6
[2020-10-11 11:10] LABS: BILIRUBIN,TOTAL 0.4 mg/dL (0.0-1.0); CALCIUM 9.1 mg/dL (8.4-10.2); CREATININE, serum 0.85 (0.66-1.25); POTASSIUM 4.1 mmol/L (3.4-5.0); TOTAL PROTEIN 6.5 gm/dL (6.4-8.2)
[2020-10-11 11:20] LABS: MEAN CELL VOLUME 108 fl (80.0-100.0); MEAN CORPUSCULAR HGB CONC 36 g/dl (33.0-37.0); RED BLOOD COUNT 1.85 M/mm3 (4.20-5.60); REDCELL DISTRIBUTION WIDTH-CV 15.3 % (11.5-14.5)
[2020-10-11 11:22] LABS: HEMOGLOBIN 7.2 g/dl (13.5-18.0); MEAN CORPUSCULAR HEMOGLOBIN 39 pg (27.0-31.0)
[2020-10-11 11:23] LABS: PLATELET COUNT 16 K/mm3 (130-400)
[2020-10-11 12:05] LABS: BAND 4 % (0-10); LYMPHOCYTE 46 % (20.0-51.0); METAMYELOCYTE 2 % (0-0); NEUTROPHILS 40 % (42.0-75.2)
[2020-10-11 12:07] LABS: ANISOCYTOSIS 1+
[2020-10-11 12:10] LABS: HELMET CELLS 1+; SCHISTOCYTES 1+; SPHEROCYTE 1+
[2020-10-11 12:15] LABS: PLATELET ESTIMATE DECREASED (NORMAL)
[2020-10-12] VITALS (12 sets, daily range): BP systolic 111–128; BP diastolic 53–79; PULSE 62–97; TEMP 97.4–97.8
[2020-10-12 08:18] LABS: PATHOLOGY DIFF REVIEW OK
[2020-10-18 10:48] VITALS: BP 122/82; PULSE 70; TEMP 98.1
[2020-10-18 11:10] LABS: MEAN CELL VOLUME 100 fl (80.0-100.0); MEAN CORPUSCULAR HGB CONC 35 g/dl (33.0-37.0); RED BLOOD COUNT 2.52 M/mm3 (4.20-5.60); REDCELL DISTRIBUTION WIDTH-CV 17.3 % (11.5-14.5)
[2020-10-18 11:14] LABS: HEMATOCRIT 25.2 % (42.0-52.0); HEMOGLOBIN 8.9 g/dl (13.5-18.0); MEAN CORPUSCULAR HEMOGLOBIN 35 pg (27.0-31.0)
[2020-10-18 11:16] LABS: ALBUMIN 3.9 gm/dL (3.5-5.0); BILIRUBIN,TOTAL 0.6 mg/dL (0.0-1.0); CALCIUM 8.6 mg/dL (8.4-10.2); CREATININE, serum 0.94 (0.66-1.25); PLATELET COUNT 20 K/mm3 (130-400); POTASSIUM 3.9 mmol/L (3.4-5.0); TOTAL PROTEIN 6.7 gm/dL (6.4-8.2)
[2020-10-18 11:30] LABS: BAND 7 % (0-10); EOSINOPHIL 2 % (0-4); LYMPHOCYTE 39 % (20.0-51.0); NEUTROPHILS 47 % (42.0-75.2); OVALOCYTES 1+; TEAR DROP CELLS 1+
[2020-10-18 11:31] LABS: PLATELET ESTIMATE DECREASED (NORMAL)
[2020-10-25 10:28] VITALS: BP 123/65; PULSE 67; TEMP 98.3
[2020-10-25 10:38] LABS: MEAN CELL VOLUME 99 fl (80.0-100.0); MEAN CORPUSCULAR HGB CONC 36 g/dl (33.0-37.0); RED BLOOD COUNT 2.34 M/mm3 (4.20-5.60); REDCELL DISTRIBUTION WIDTH-CV 17.2 % (11.5-14.5)
[2020-10-25 10:40] LABS: ALBUMIN 4.1 gm/dL (3.5-5.0); BILIRUBIN,TOTAL 0.7 mg/dL (0.0-1.0); CALCIUM 8.8 mg/dL (8.4-10.2); CREATININE, serum 0.96 (0.66-1.25); HEMATOCRIT 23.2 % (42.0-52.0); HEMOGLOBIN 8.3 g/dl (13.5-18.0); MEAN CORPUSCULAR HEMOGLOBIN 35 pg (27.0-31.0); POTASSIUM 4.2 mmol/L (3.4-5.0); TOTAL PROTEIN 6.9 gm/dL (6.4-8.2)
[2020-10-25 10:41] LABS: PLATELET COUNT 39 K/mm3 (130-400)
[2020-10-25 10:51] LABS: ANISOCYTOSIS 1+; BAND 10 % (0-10); LYMPHOCYTE 32 % (20.0-51.0); NEUTROPHILS 55 % (42.0-75.2); PLATELET ESTIMATE DECREASED (NORMAL)
[2020-10-25 10:52] LABS: OVALOCYTES 1+; TEAR DROP CELLS 1+
[2020-11-01 10:44] VITALS: BP 125/52; PULSE 69; TEMP 97.6
[2020-11-01 11:21] LABS: MEAN CELL VOLUME 100 fl (80.0-100.0); MEAN CORPUSCULAR HGB CONC 35 g/dl (33.0-37.0); RED BLOOD COUNT 2.06 M/mm3 (4.20-5.60)
[2020-11-01 11:24] LABS: ALBUMIN 3.9 gm/dL (3.5-5.0); BILIRUBIN,TOTAL 0.5 mg/dL (0.0-1.0); CREATININE, serum 0.87 (0.66-1.25); POTASSIUM 3.9 mmol/L (3.4-5.0); TOTAL PROTEIN 6.7 gm/dL (6.4-8.2)
[2020-11-01 11:26] LABS: HEMATOCRIT 20.5 % (42.0-52.0); HEMOGLOBIN 7.1 g/dl (13.5-18.0); MEAN CORPUSCULAR HEMOGLOBIN 34 pg (27.0-31.0)
[2020-11-01 11:28] LABS: PLATELET COUNT 49 K/mm3 (130-400)
[2020-11-01 11:54] LABS: BAND 7 % (0-10); EOSINOPHIL 1 % (0-4); NEUTROPHILS 40 % (42.0-75.2); PLATELET ESTIMATE DECREASED (NORMAL)
[2020-11-01 11:55] LABS: LYMPHOCYTE 51 % (20.0-51.0)
[2020-11-01 11:56] LABS: ANISOCYTOSIS 1+; MICROCYTOSIS 1+
[2020-11-03] VITALS (7 sets, daily range): BP systolic 109–127; BP diastolic 72–86; PULSE 75–94; TEMP 97.9–98.8
[~2020-11-08] VITALS: Ht 185.4 cm; Wt 100.4 kg
[2020-11-08 10:35] LABS: MEAN CELL VOLUME 93 fl (80.0-100.0); MEAN CORPUSCULAR HGB CONC 35 g/dl (33.0-37.0); PLATELET COUNT 53 K/mm3 (130-400); RED BLOOD COUNT 2.72 M/mm3 (4.20-5.60); REDCELL DISTRIBUTION WIDTH-CV 16.9 % (11.5-14.5)
[2020-11-08 10:39] LABS: ALBUMIN 3.9 gm/dL (3.5-5.0); BILIRUBIN,TOTAL 0.7 mg/dL (0.0-1.0); CREATININE, serum 0.99 (0.66-1.25); POTASSIUM 3.5 mmol/L (3.4-5.0); TOTAL PROTEIN 6.6 gm/dL (6.4-8.2)
[2020-11-08 10:40] LABS: HEMATOCRIT 25.3 % (42.0-52.0); HEMOGLOBIN 8.8 g/dl (13.5-18.0); MEAN CORPUSCULAR HEMOGLOBIN 32 pg (27.0-31.0)
[2020-11-08 10:41] VITALS: BP 116/79; PULSE 97; TEMP 98
[2020-11-08 11:12] LABS: ANISOCYTOSIS 2+; BAND 21 % (0-10); HYPOCHROMIA 1+; LYMPHOCYTE 32 % (20.0-51.0); NEUTROPHILS 46 % (42.0-75.2); PLATELET ESTIMATE DECREASED (NORMAL)
== END 2020-11-09 08:31 | disposition home or self-care (01) ==
LOC: EUO 10:00
PROVIDERS: Internal Medicine
DX: C92.A0 Acute myeloid leukemia with multilineage dysplasia, not having achieved remission (principal); Z95.9 Presence of cardiac and vascular implant and graft, unspecified
CPT/HCPCS: J7050; P9037; P9040

== ENCOUNTER 2020-11-23 13:00 | Outpatient (RCR) | payer MEDICARE, MEDICAID ==
[2020-11-15 11:03] VITALS: BP 110/69; PULSE 72; TEMP 98
[2020-11-15 11:14] LABS: ALBUMIN 4.1 gm/dL (3.5-5.0); BILIRUBIN,TOTAL 0.6 mg/dL (0.0-1.0); CALCIUM 8.9 mg/dL (8.4-10.2); CREATININE, serum 0.93 (0.66-1.25); MAGNESIUM 2.3 mg/dL (1.6-2.3); POTASSIUM 3.5 mmol/L (3.4-5.0); TOTAL PROTEIN 6.9 gm/dL (6.4-8.2)
[2020-11-15 11:16] LABS: MEAN CELL VOLUME 91 fl (80.0-100.0); MEAN CORPUSCULAR HGB CONC 36 g/dl (33.0-37.0); RED BLOOD COUNT 2.49 M/mm3 (4.20-5.60); REDCELL DISTRIBUTION WIDTH-CV 16.4 % (11.5-14.5)
[2020-11-15 11:24] LABS: HEMATOCRIT 22.7 % (42.0-52.0); HEMOGLOBIN 8.1 g/dl (13.5-18.0); MEAN CORPUSCULAR HEMOGLOBIN 33 pg (27.0-31.0)
[2020-11-15 11:35] LABS: PLATELET COUNT 30 K/mm3 (130-400)
[2020-11-15 12:04] LABS: BAND 1 % (0-10); EOSINOPHIL 2 % (0-4); LYMPHOCYTE 51 % (20.0-51.0); NEUTROPHILS 45 % (42.0-75.2)
[2020-11-15 12:05] LABS: ANISOCYTOSIS 1+; PLATELET ESTIMATE DECREASED (NORMAL)
[2020-11-15 12:06] LABS: OVALOCYTES 1+; SCHISTOCYTES 1+; SPHEROCYTE 1+
[2020-11-22 11:14] LABS: ALBUMIN 3.8 gm/dL (3.5-5.0); BILIRUBIN,TOTAL 0.2 mg/dL (0.0-1.0); CALCIUM 9.4 mg/dL (8.4-10.2); CREATININE, serum 0.95 (0.66-1.25); MAGNESIUM 2.1 mg/dL (1.6-2.3); TOTAL PROTEIN 6.5 gm/dL (6.4-8.2)
[2020-11-22 11:34] LABS: MEAN CELL VOLUME 93 fl (80.0-100.0); MEAN CORPUSCULAR HGB CONC 35 g/dl (33.0-37.0); RED BLOOD COUNT 2.06 M/mm3 (4.20-5.60); REDCELL DISTRIBUTION WIDTH-CV 16.1 % (11.5-14.5)
[2020-11-22 11:35] LABS: HEMATOCRIT 19.2 % (42.0-52.0); MEAN CORPUSCULAR HEMOGLOBIN 33 pg (27.0-31.0)
[2020-11-22 11:36] LABS: HEMOGLOBIN 6.7 g/dl (13.5-18.0); PLATELET COUNT 10 K/mm3 (130-400)
[2020-11-22 11:51] VITALS: BP 122/89; PULSE 94; TEMP 97.7
[2020-11-22 12:13] LABS: BAND 2 % (0-10); BASOPHIL 1 % (0-2); EOSINOPHIL 1 % (0-4); LYMPHOCYTE 48 % (20.0-51.0); NEUTROPHILS 44 % (42.0-75.2); PLATELET ESTIMATE DECREASED (NORMAL)
[~2020-11-23] VITALS: Ht 185.4 cm; Wt 97.1 kg
[2020-11-23] VITALS (13 sets, daily range): BP systolic 111–127; BP diastolic 61–78; PULSE 55–74; TEMP 97.5–98.7
--- NOTE | 2020-11-23 16:30 | NUR ---
report from Keith Marroquin.
--- NOTE | 2020-11-23 18:32 | NUR ---
Report to Keith Owen.
== END 2020-11-30 15:21 | disposition home or self-care (01) ==
LOC: EUO
PROVIDERS: Internal Medicine
DX: C92.A0 Acute myeloid leukemia with multilineage dysplasia, not having achieved remission (principal); D46.C Myelodysplastic syndrome with isolated del(5q) chromosomal abnormality; I10 Essential (primary) hypertension
CPT/HCPCS: J7050; P9037; P9040